=== PATIENT | female | born 1960 | race Caucasian/White ===

== ENCOUNTER 2016-06-20 02:16 | Emergency (ER) | payer MEDICAID, OTHER, SELFPAY ==
[2016-06-20 02:36] VITALS: BP 136/70
[2016-06-20] MEDS ORDERED: Sodium Chloride 0.9% 1,000 ML IV ONE (02:38)
--- NOTE | 2016-06-20 02:39 | EDM.PDOC ---
ED HPI GI/ABDOMINAL - General Chief Complaint: Abdominal Pain Stated Complaint: DIARRHEA NAUSEA COUGH Time Seen by Provider: 06/20/16 02:37 Source of Information: Reports: Patient History Limitations: Reports: No limitations - History of Present Illness INITIAL COMMENTS - FREE TEXT/NARRATIVE: 55-year-old female presents the ED with diffuse abdominal cramping pain and associated diarrhea. She's also vomited twice at home. She states she thinks she got sick from eating bad food at a buffet earlier in the evening at around 7 :00. She started to feel unwell even while fishing upper meal. Started vomiting about 3-1/2-4 hours later with associated diarrhea. Pain is primarily central abdominal cramping in origin. Feels better after diarrhea. She's had 3 large volume diarrheal stools without blood. Associated chills and feeling hot and cold but no defined fever. She reports a constant tickle in her throat and dry cough. She believes she has gallstones but is never been proven. Rates her pain in her abdomen at this time as 2/10 . Feels bloated and distended. Symptom Onset Date: 06/20/16 Timing/Duration: Reports: Hour(s):, Sudden onset Location: other (Epigastric and periumbilical) Quality: Reports: burning, cramping, fullness Severity: moderate Improves with: Reports: defecating Context: Reports: bad/questionable food. Denies: sick contact, out of country travel, recent surgery, recent trauma, lifting, activity/exercise, other Associated Symptoms (-Female): Reports: other (Chronic nonproductive cough.). Denies: chest pain, back pain Treatments [employer]: Reports: Other (see below) (None) - Related Data Allergies/ADRs: Allergies Allergy/AdvReac Type Severity Reaction Status Date / Time No Known Allergies Allergy Verified 04/13/16 04:22 Home Meds: Home Meds Orphenadrine [Norflex] 1 tab PO Q12H #10 tab.er 04/13/16 [Rx] Ondansetron [Zofran ODT] 4 mg PO Q6H #4 tab.dis 06/20/16 [Rx] Past Medical History - Past Health History Medical/Surgical History: Denies Medical/Surgical History Gastrointestinal History: Reports: Hemorrhoids, Helicobacter pylori Other Gastrointestinal History: with [employer] History: Reports: Musculoskeletal History: Reports: Arthritis Other Musculoskeletal History: Back injury 7 years ago - Infectious Disease History Infectious Disease History: Reports: Chicken pox, Measles - Past Surgical History Female Surgical History: Reports: section (x 3) Social & Family History - Family History Family Medical History: Noncontributory - Tobacco Use Smoking Status *Q: Never Smoker Second Hand Smoke Exposure: No - Caffeine Use Caffeine Use: Reports: Coffee - Alcohol Use Days Per Week of Alcohol Use: 3 Number of Drinks Per Day: 1 Total Drinks Per Week: 3 - Recreational Drug Use Recreational Drug Use: No - Living Situation & Occupation Living situation: Reports: single, alone Occupation: employed ([employer]) ED ROS GENERAL - Review of Systems Review Of Systems: See Below Constitutional: Reports: chills, malaise, weakness, fatigue. Denies: fever, weight loss HEENT: Reports: No symptoms Respiratory: Reports: Cough (Cough for a lengthy period of time mostly dry nonproductive worsened yesterday.) Cardiovascular: Reports: Lightheadedness (Little lightheaded when she stands up. ). Denies: Chest pain, Blood pressure problem, Claudication, Dyspnea on exertion, Edema, Orthopnea Endocrine: Reports: no symptoms, polydypsia GI/Abdominal: Reports: Abdominal pain, Diarrhea (See history of present illness) , Nausea, Vomiting. Denies: Hematemesis, Hematochezia : Reports: frequency Musculoskeletal: Reports: back pain (Some problems with low back pain and knee pain.) Neurological: Reports: No Symptoms Psychiatric: Reports: No symptoms Hematologic/Lymphatic: Reports: no symptoms ED EXAM, GI/ABD - Physical Exam Exam: See Below Exam Limited By: No limitations General Appearance: alert, WD/WN, mild distress Eyes: bilateral: normal appearance (No jaundice) Throat/Mouth: Normal inspection, Normal lips, Normal oropharynx, Other Head: atraumatic, normocephalic Neck: normal inspection, supple, non-tender, full range of motion Respiratory/Chest: no respiratory distress, lungs clear, normal breath sounds, no accessory muscle use, chest non-tender Cardiovascular: normal peripheral pulses, regular rate, rhythm, no edema, no murmur GI/Abdominal: hyperactive bowel sounds, tenderness (Periumbilical and right lower quadrant.), Ortiz's sign (Mildly positive Ortiz sign. May be tenderness in the epigastrium from vomiting.), other (Abdominal girth limits palpation of solid organs.). No: guarding, rebound, rigidity Back Exam: normal inspection, full range of motion. No: CVA tenderness (L), CVA tenderness (R) Extremities: normal inspection, normal range of motion, non-tender, no pedal edema, normal capillary refill Psychiatric: normal affect, normal mood Skin Exam: Warm, Dry, Intact, Normal color, No rash Course - Vital Signs Last Recorded V/S: Last Vital Signs Temp 36.2 C 06/20/16 02:31 Pulse 80 06/20/16 02:31 Resp 16 06/20/16 02:31 BP 136/70 06/20/16 02:31 Pulse Ox 93 L 06/20/16 02:31 - Orders/Labs/Meds Labs: Laboratory Tests 06/20/16 06/20/16 Range/Units 02:45 02:45 WBC 5.26 (3.98-10.04) K/mm3 RBC 5.00 (3.98-5.22) M/mm3 Hgb 14.6 (11.2-15.7) gm/L Hct 44.1 (34.1-44.9) % MCV 88.2 (79.4-94.8) fl MCH 29.2 (25.6-32.2) pg MCHC 33.1 (32.2-35.5) g/dl RDW Std Deviation 41.6 (36.4-46.3) fL Plt Count 206 (182-369) K/mm3 MPV 10.0 (9.4-12.3) fl Neutrophils % (Manual) 68 H (40-60) % Band Neutrophils % 0 (0-10) % Lymphocytes % (Manual) 19 L (20-40) % Atypical Lymphs % 0 % Monocytes % (Manual) 6 (2-10) % Eosinophils % (Manual) 5 (0.7-5.8) % Basophils % (Manual) 2 H (0.1-1.2) Platelet Estimate Adequate Plt Morphology Comment Normal RBC Morph Comment Normal Sodium 143 (136-145) mEq/L Potassium 3.6 (3.5-5.1) mEq/L Chloride 108 H (98-107) mEq/L Carbon Dioxide 25 (21-32) mEq/L Anion Gap 13.6 (5-15) BUN 19 H (7-18) mg/dL Creatinine 0.9 (0.55-1.02) mg/dL Est Cr Clr Drug Dosing 62.80 mL/min Estimated GFR (MDRD) > 60 (>60) mL/min BUN/Creatinine Ratio 21.1 H (14-18) Glucose 112 H (74-106) mg/dL Calcium 8.6 (8.5-10.1) mg/dL Total Bilirubin 0.8 (0.2-1.0) mg/dL AST 23 (15-37) U/L ALT 25 (14-59) U/L Alkaline Phosphatase 77 (46-116) U/L C-Reactive Protein 1.2 H* (<1.0) mg/dL Total Protein 7.3 (6.4-8.2) g/dl Albumin 3.4 (3.4-5.0) g/dl Globulin 3.9 gm/dL Albumin/Globulin Ratio 0.9 L (1-2) Amylase 73 (25-115) U/L Meds: Medications Discontinued Medications Generic Name Dose Route Start Last Admin Trade Name Jaceq PRN Reason Stop Dose Admin Dicyclomine HCl 20 mg 06/20/16 04:27 06/20/16 04:33 Bentyl PO 06/20/16 04:28 20 mg ONETIME ONE Administration Hydromorphone HCl 0.5 mg 06/20/16 02:57 06/20/16 03:12 Dilaudid IVPUSH 06/20/16 02:58 0.5 mg ONETIME ONE Administration Sodium Chloride 1,000 mls @ 500 mls/hr 06/20/16 02:38 06/20/16 02:45 Normal Saline IV 06/20/16 04:37 500 mls/hr ONETIME ONE Administration Ondansetron HCl 4 mg 06/20/16 02:57 06/20/16 03:11 Zofran IVPUSH 06/20/16 02:58 4 mg ONETIME ONE Administration - Radiology Interpretation Free Text/Narrative:: 55-year-old female presents the ED do to diffuse abdominal cramping pain and associated nausea vomiting and diarrhea. She states that she has been told she has gallbladder disease and not to eat much in terms of fatty foods. She ate out at [employer] last evening and felt unwell prior to even finishing her meal. About 3-1/2 hours later she started having nausea then vomiting followed by diarrhea suggesting foodborne illness. She has had 3 large volume watery stools and has vomited 3 times well without blood. Associated feeling hot and cold without a defined fever. Has mid abdominal cramping pain. Examination revealed hyperactive bowel sounds and no convincing evidence of peritonitis or gallbladder disease. Plan IV D5 normal saline at open. Zofran 4 mg IV and Dilaudid 0.5 mg IV for pain relief. Routine labs including an amylase to be done. - Re-Assessments/Exams Free Text/Narrative Re-Assessment/Exam: 06/20/16 04:24 chest x-ray was done and was within normal limits. The abdomen shows scattered air throughout the large and small bowel without any obstructive signs or symptoms. Bedside ultrasound done I believe shows a small layering of stones on the posterior fundus. The gallbladder was difficult to visualize due to abdominal size. Gallbladder wall did not appear to be thickened and no pericholecystic fluid was identified. Lab tests also proved to be completely normal with a white count of 5.26 and 60% neutrophils no bands. Hemoglobin of 14.6 platelets 206,000. Chemistry was completely normal. Amylase was 73. Patient will be discharged home on Zofran 4 mg sublingually q. 4-6 hours. For nausea or vomiting relief. Will be given Bentyl 20 mg tablet orally now. Advise clear fluids such as Gatorade Powerade ideally 5 ounces per hour for the next 8-10 hours and then gradually introduced soup broth and then turkey rice turkey noodle soup such. Advised to avoid all dairy products and no apple or grape juice until stools are formed backup. Departure - Departure Time of Disposition: 04:27 Disposition: Home, Self-Care 01 Condition: fair Clinical Impression: Gastroenteritis Prescriptions: Ondansetron [Zofran ODT] 4 mg PO Q6H #4 tab.dis Instructions: Viral Gastroenteritis, Adult, [id number] Referrals: PCP,None [Primary Care Provider] - Forms: ED Department Discharge, Return to Work/School Form Additional Instructions: Evaluation in the emergency tonight in regards to development of acute onset of nausea vomiting and diarrhea. Associated mid abdominal pain. Evaluation by way of lab work revealed no abnormalities. X-ray of your chest was done due to reported increasing cough the last few days but it proved to be normal with no signs of infection or pneumonia. X-rays of the abdomen showed bowel gas throughout both large and small get bowels compatible with diarrhea pattern. It appears that you picked up either a viral gastroenteritis organism or foodborne illness i.e. toxin from food eaten earlier in the evening. The body is getting rid of the virus or toxin by way of vomiting and diarrhea. You're treated with a liter of IV fluids to restore your hydration. Also given Zofran 4 mg IV to stop nausea and vomiting and Dilaudid 0.5 mg for pain relief. Treatment at home is to be clear fluids such as Gatorade or Powerade. Ideally sipping 5 ounces per hour Will rehydrate you to prevent dehydration. Once is as tolerated he may advance diet to things like soda crackers. If tolerated may advance to soup broth or turkey rice turkey noodle et cetera. May then advance to things like toast, poached egg etc. Suggest staying away from all day products and no apple or grape juice until stools are formed back up. Note given to excuse you from the workplace early today and possibly tomorrow depending on how well you do today with the diarrhea. Sometimes the diarrhea may take a day or 2 to settle down. May use Zofran 4 mg under tongue every 6 hours as needed to alleviate nausea or vomiting. 4 tablets were sent home with you through the ED.
[2016-06-20] MEDS ORDERED: HYDROmorphone 0.5 MG/0.5 ML Syringe IVPUSH ONE (02:57)
[2016-06-20] MEDS ORDERED: Ondansetron 4 MG/2 ML SDV IVPUSH ONE (02:57)
[2016-06-20] MEDS ORDERED: Dicyclomine 10 MG Cap PO ONE (04:27)
[2016-06-20] MEDS ORDERED: Ondansetron 4 MG Tab.DIS ONE (04:56)
--- NOTE | 2016-06-20 18:16 | CR ---
Abdomen: Supine view of the abdomen was obtained. Comparison: No previous study. Bowel gas pattern appears normal. No abnormal calcifications or soft tissue abnormality is seen. Bony structures are unremarkable. Impression: 1. No abnormality identified on supine abdominal x-ray. Diagnostic code #1
--- NOTE | 2016-06-20 18:16 | CR ---
Chest: Frontal view of the chest was obtained. Comparison: Previous chest x-ray of 09/28/11. Heart is slightly enlarged. Mild tortuosity of the thoracic aorta is seen. Lungs are clear with no acute infiltrates. Bony structures are grossly intact. Impression: 1. Heart is slightly enlarged. Nothing acute is otherwise seen on frontal chest x-ray. Diagnostic code #2
== END 2016-06-20 05:00 | disposition home or self-care (01) ==
LOC: JD.ED 02:16
DX: K52.9 Noninfective gastroenteritis and colitis, unspecified (principal); M19.90 Unspecified osteoarthritis, unspecified site; Z79.899 Other long term (current) drug therapy
CPT/HCPCS: 36415; 71010; 74000; 80053; 82150; 85025; 86140; 96361; 96374; 96375; 99284; A9270; J1170; J2405; J7040

== ENCOUNTER 2016-11-08 13:35 | Emergency (ER) | payer SELFPAY ==
[2016-11-08 14:02] VITALS: BP 120/55
--- NOTE | 2016-11-08 14:31 | EDM.PDOC ---
ED HPI GENERAL MEDICAL PROBLEM - General Chief Complaint: Back Pain or Injury Stated Complaint: BACK PAIN/SPASMS Time Seen by Provider: 11/08/16 14:16 Source of Information: Reports: Patient History Limitations: Reports: No Limitations - History of Present Illness INITIAL COMMENTS - FREE TEXT/NARRATIVE: Patient is a 55-year-old female who presents to the ED complaining of back spasms. 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 States she was seen approximately 2 weeks ago for similar symptoms and was placed on a muscle relaxer. Bought a new pair of shoes thinking that this would relieve her discomfort. States the last couple of days discomfort has worsened. Pain is located to the left and right buttocks with occasional intermittent shooting pain to her thigh. Pain is improved with moving. Worsened with standing and placed for long duration of time. Denies any saddle anesthesia, incontinence to urine or stool, numbness/ tingling, weakness, or history of back injury/surgery. Patient has no dysuria. As of recent patient is not taking any Tylenol or ibuprofen. Back Pain Score (Numeric/FACES): 1 - Related Data Allergies Allergy/AdvReac Type Severity Reaction Status Date / Time No Known Allergies Allergy Verified 04/13/16 04:22 Home Meds: Home Meds Orphenadrine [Norflex] 100 mg PO BID PRN #20 tab.er 11/08/16 [Rx] Prednisone [IMW: predniSONE] 40 mg PO WITHBREAKFAST #10 tab 11/08/16 [Rx] Past Medical History - Past Health History Medical/Surgical History: Denies Medical/Surgical History Gastrointestinal History: Reports: Cholelithiasis, Hemorrhoids, Helicobacter Pylori Other Gastrointestinal History: with [employer] History: Reports: Musculoskeletal History: Reports: Arthritis Other Musculoskeletal History: Back injury 7 years ago - Infectious Disease History Infectious Disease History: Reports: Chicken Pox, Measles - Past Surgical History Female Surgical History: Reports: Section Social & Family History - Family History Family Medical History: Noncontributory - Tobacco Use Smoking Status *Q: Never Smoker Second Hand Smoke Exposure: No - Caffeine Use Caffeine Use: Reports: Coffee - Alcohol Use Days Per Week of Alcohol Use: 3 Number of Drinks Per Day: 1 Total Drinks Per Week: 3 - Recreational Drug Use Recreational Drug Use: No - Living Situation & Occupation Living situation: Reports: Single, Alone Occupation: Employed ED ROS GENERAL - Review of Systems Review Of Systems: See Below Constitutional: Reports: No Symptoms Respiratory: Reports: No Symptoms Cardiovascular: Reports: Dyspnea on Exertion GI/Abdominal: Reports: No Symptoms : Reports: No Symptoms Musculoskeletal: Reports: Back Pain Neurological: Denies: Numbness, Tingling, Difficulty Walking ED EXAM,LOWER BACK PAIN/INJURY - Physical Exam Exam: See Below Exam Limited By: No Limitations General Appearance: Alert, WD/WN, No Apparent Distress Ears: Hearing Grossly Normal Nose: Normal Inspection Throat/Mouth: Normal Voice, No Airway Compromise Neck: Normal Inspection, Supple Respiratory/Chest: No Respiratory Distress, Lungs Clear, Normal Breath Sounds, No Accessory Muscle Use Cardiovascular: Normal Peripheral Pulses, Regular Rate, Rhythm GI/Abdominal: Normal Bowel Sounds, Soft, Non-Tender, No Organomegaly, No Distention Back Exam: Normal Inspection, Full Range of Motion, Other (pain along the si joint bilaterally. ). No: Paraspinal Tenderness, Vertebral Tenderness Extremities: Normal Inspection, Normal Range of Motion, Non-Tender, No Pedal Edema, Normal Capillary Refill. No: Limited Range of Motion Neurological: Alert, Normal Mood/Affect, Normal Dorsiflexion, CN II-XII Intact, Normal Plantar Flexion, Normal Gait, No Motor/Sensory Deficits, Oriented x 3. No: Straight Leg Raise (L), Straight Leg Raise (R) Psychiatric: Normal Affect, Normal Mood Skin Exam: Warm, Dry, Intact, Normal Color Lymphatic: No Adenopathy Course - Vital Signs Last Recorded V/S: Last Vital Signs Temp 97.8 F 11/08/16 13:59 Pulse 74 11/08/16 13:59 Resp 20 11/08/16 13:59 BP 120/55 L 11/08/16 13:59 Pulse Ox 98 11/08/16 13:59 - Re-Assessments/Exams Free Text/Narrative Re-Assessment/Exam: On examination patient has SI joint dysfunction. Thus will discharge patient home with instructions. Departure - Departure Time of Disposition: 14:28 Disposition: Home, Self-Care 01 Condition: Good Clinical Impression: Bilateral sacroiliitis - Discharge Information Prescriptions: Orphenadrine [Norflex] 100 mg PO BID PRN #20 tab.er PRN Reason: Muscle Spasm Prednisone [IMW: predniSONE] 40 mg PO WITHBREAKFAST #10 tab Instructions: Back Injury Prevention, [id number], Muscle Strain, [id number] , Back Pain, Adult, [id number], Pain Medicine Instructions, [id number], Chronic Back Pain Referrals: PCP,None [Primary Care Provider] - Forms: ED Department Discharge Additional Instructions: Take Norflex and prednisone as prescribed. Utilize ibuprofen and Tylenol in alternating fashion for pain. Apply cold compresses 4 times daily, 20 minutes in duration, for the next 48 hours. Thereafter alternate with heat and ice. Refrain from any activities that cause worsening pain. Follow-up with primary care provider at [facility] in the next week for reevaluation. Return to ED for any new or worsening symptoms.
== END 2016-11-08 15:00 | disposition home or self-care (01) ==
LOC: JD.ED 13:35
DX: M46.1 Sacroiliitis, not elsewhere classified (principal)
CPT/HCPCS: 99283

== ENCOUNTER 2017-05-15 05:39 | Emergency (ER) | payer OTHER, SELFPAY ==
[2017-05-15 05:48] VITALS: BP 138/66
--- NOTE | 2017-05-15 06:14 | EDM.PDOC ---
ED HPI GENERAL MEDICAL PROBLEM - General Chief Complaint: Skin Complaint Stated Complaint: PAIN BRUNING ON THE BUTTOX Time Seen by Provider: 05/15/17 05:56 Source of Information: Reports: Patient History Limitations: Reports: No Limitations - History of Present Illness INITIAL COMMENTS - FREE TEXT/NARRATIVE: This is a 56-year-old female. She noted yesterday morning that when she went to the bathroom and then wiped herself she had some soreness and pain in her buttocks region. It is only gotten more irritated and painful and so she comes to the ER this morning for evaluation. She denies any exposure to any chemicals or soaps or anything she is not sure why she has this rash. She denies any fever or chills no nausea and vomiting no diarrhea. 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 [employer] History: Reports: Musculoskeletal History: Reports: Arthritis Other Musculoskeletal History: Back injury 7 years ago - Infectious Disease History Infectious Disease History: Reports: Chicken Pox, Measles - Past Surgical History Female Surgical History: Reports: Section Social & Family History - Family History Family Medical History: Noncontributory - Tobacco Use Smoking Status *Q: Never Smoker Second Hand Smoke Exposure: No - Caffeine Use Caffeine Use: Reports: Coffee - Alcohol Use Days Per Week of Alcohol Use: 3 Number of Drinks Per Day: 1 Total Drinks Per Week: 3 - Recreational Drug Use Recreational Drug Use: No - Living Situation & Occupation Living situation: Reports: Single, Alone Occupation: Employed ED ROS GENERAL - Review of Systems Review Of Systems: See Below Constitutional: Denies: Fever, Chills HEENT: Reports: No Symptoms Respiratory: Reports: No Symptoms Cardiovascular: Reports: No Symptoms Endocrine: Reports: No Symptoms GI/Abdominal: Reports: No Symptoms : Reports: Other (As per history of present illness) Musculoskeletal: Reports: No Symptoms Skin: Reports: No Symptoms Neurological: Reports: No Symptoms Psychiatric: Reports: No Symptoms Hematologic/Lymphatic: Reports: No Symptoms ED EXAM, SKIN/RASH Exam: See Below Exam Limited By: No Limitations General Appearance: Alert, WD/WN, No Apparent Distress Eye Exam: Bilateral Eye: Normal Inspection Ears: Normal External Exam Nose: Normal Inspection Throat/Mouth: Normal Inspection, Normal Lips, Normal Voice, No Airway Compromise Head: Normocephalic Neck: Supple Respiratory/Chest: No Respiratory Distress Back Exam: Other (On her back at the very top of the buttocks cleavage she has a patch about the size of a palm on the right side of midline that appears to be developing shingles. I do not see any other lesions following the S1 or S2 dermatome on the right side, she has a typical erythematous patch with blistering and different stages of blistering noted) Extremities: Normal Inspection, Normal Range of Motion Neurological: Alert, Oriented Psychiatric: Normal Affect, Normal Mood Skin: Warm, Dry, Zoster-Like Rash Location, Skin: Back (Lower back) Characteristics: Vesicular Associated features: Tenderness Course - Vital Signs Last Recorded V/S: Last Vital Signs Temp 96.4 F 05/15/17 05:45 Pulse 71 05/15/17 05:45 Resp 16 05/15/17 05:45 BP 138/66 05/15/17 05:45 Pulse Ox 98 05/15/17 05:45 Departure - Departure Time of Disposition: 06:12 Disposition: Home, Self-Care 01 Condition: Fair Clinical Impression: Shingles (herpes zoster) polyneuropathy - Discharge Information Prescriptions: Acyclovir 800 mg PO 5XDAY #35 tablet Hydrocodone/Acetaminophen [Hydrocodon-Acetaminophen 5-325] 1 each PO Q6H PRN # 15 tablet PRN Reason: Pain Referrals: Nella Pierce PA-C [[facility]] - Additional Instructions: Give the acyclovir today and started today, you may use the pain medication as needed and it is best to use at night time so you can sleep, be careful about taking the pain medication during the day as it can make you sleepy, use the lidocaine patches to the lesions to help numb the area or use Solarcaine spray to numb the area, recheck with a provider end of this week, expect that you will get some more rash and blistering besides that one patch as the shingles develops, return to the ER if needed
== END 2017-05-15 06:30 | disposition home or self-care (01) ==
LOC: JD.ED 05:39
DX: B02.23 Postherpetic polyneuropathy (principal)
CPT/HCPCS: 99283

== ENCOUNTER 2018-04-09 00:06 | Emergency (ER) | payer SELFPAY ==
[2018-04-09 00:17] VITALS: BP 134/61
[2018-04-09] MEDS ORDERED: Ibuprofen 200 MG Tab PO ONE (00:40)
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
== END 2018-04-09 01:06 | disposition home or self-care (01) ==
LOC: JD.ED 00:06
DX: M70.62 Trochanteric bursitis, left hip (principal)
CPT/HCPCS: 99283; A9270; 99282

== ENCOUNTER 2018-07-06 09:47 | Emergency (ER) | payer OTHER, SELFPAY ==
[2018-07-06 10:06] VITALS: BP 125/78
[2018-07-06] MEDS ORDERED: Ketorolac 30 MG/ML SDV IM ONE (11:09)
[2018-07-06] MEDS ORDERED: Orphenadrine 100 MG Tab.ER ONE (11:14)
--- NOTE | 2018-07-06 11:14 | EDM.PDOC ---
ED HPI GENERAL MEDICAL PROBLEM - General Chief Complaint: Back Pain or Injury Stated Complaint: BACK SPASM Time Seen by Provider: 07/06/18 10:05 Source of Information: Reports: Patient, RN Notes Reviewed History Limitations: Reports: No Limitations - History of Present Illness INITIAL COMMENTS - FREE TEXT/NARRATIVE: Patient is a 57-year-old female who presents to the ED for the evaluation of lower back pain. The patient states that she first hurt her back when she was in her 20s, and she has been having chronic issues since then. She states over the past few days however it is been worse. She notes that she works at [employer] in the [employer] and does have to lift some heavier boxes from time to time and states that she does have some back pain after lifting these heavier boxes. She states that when she awoke this morning there were some "twinges"of pain. She did take a cyclobenzaprine around 2 hours ago. She has been taken some ibuprofen, her last dose was 400 mg yesterday. She states that the pain is a sharp stabbing in nature. She does not have any numbness or tingling into her extremities nor does the pain radiated down her right or left leg. She states the pain is mostly into her left lower back. She states that walking does hurt this as well. She states she does have a primary care provider, however she cannot remember her name at this time. She states this she in the [facility] facility however. 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: Musculoskeletal History: Reports: Arthritis Other Musculoskeletal History: Back injury 7 years ago Endocrine/Metabolic History: Reports: Obesity/BMI 30+ - Infectious Disease History Infectious Disease History: Reports: Chicken Pox, Measles - Past Surgical History HEENT Surgical History: Reports: Oral Surgery (wisdom teeth extraction) Female Surgical History: Reports: Section (x 3), Tubal Ligation Social & Family History - Family History Family Medical History: Noncontributory - Caffeine Use Caffeine Use: Reports: Coffee - Living Situation & Occupation Living situation: Reports: , Alone Occupation: Employed ([employer]) ED ROS GENERAL - Review of Systems Review Of Systems: See Below Constitutional: Reports: No Symptoms HEENT: Reports: No Symptoms Respiratory: Reports: No Symptoms Cardiovascular: Reports: No Symptoms Endocrine: Reports: No Symptoms GI/Abdominal: Reports: No Symptoms : Reports: No Symptoms Musculoskeletal: Reports: Back Pain. Denies: Leg Pain Skin: Reports: No Symptoms Neurological: Denies: Numbness, Tingling Psychiatric: Reports: No Symptoms Hematologic/Lymphatic: Reports: No Symptoms Immunologic: Reports: No Symptoms ED EXAM,LOWER BACK PAIN/INJURY - Physical Exam Exam: See Below Exam Limited By: No Limitations General Appearance: Alert, WD/WN, No Apparent Distress Eye Exam: Bilateral Eye: Normal Inspection Ears: Normal External Exam Nose: Normal Inspection Throat/Mouth: Normal Inspection, Normal Lips, Normal Teeth, Normal Gums, Normal Oropharynx, Normal Voice, No Airway Compromise Head: Atraumatic, Normocephalic Neck: Normal Inspection Respiratory/Chest: No Respiratory Distress, Lungs Clear, Normal Breath Sounds, No Accessory Muscle Use, Chest Non-Tender Cardiovascular: Normal Peripheral Pulses, Regular Rate, Rhythm, No Murmur GI/Abdominal: Normal Bowel Sounds, Soft, Non-Tender Back Exam: Normal Inspection, Full Range of Motion, Other (Point tenderness over her left SI joint, and into the muscle insertion) Extremities: Normal Inspection, Normal Range of Motion, No Pedal Edema Neurological: Alert, Normal Mood/Affect, Normal Dorsiflexion, Normal Plantar Flexion, Normal Gait, Normal Reflexes, Oriented x 3. No: Straight Leg Raise (L) , Straight Leg Raise (R) Psychiatric: Normal Affect, Normal Mood Skin Exam: Warm, Dry, Intact, Normal Color, No Rash Course - Vital Signs Last Recorded V/S: Last Vital Signs Temp 98.5 F 07/06/18 10:02 Pulse 85 07/06/18 10:02 Resp 18 07/06/18 10:02 BP 125/78 07/06/18 10:02 Pulse Ox 100 07/06/18 10:02 - Orders/Labs/Meds Orders: Active Orders 24 hr Category Date Time Status Orphenadrine [Norflex] Med 07/06/18 21:00 Ordered 100 mg PO BEDTIME Medication Orders Orphenadrine Citrate (Norflex) 100 mg PO BEDTIME BENOIT Last Admin: 07/06/18 11:16 Dose: 100 mg Meds: Medications Generic Name Dose Route Start Last Admin Trade Name Freq PRN Reason Stop Dose Admin Orphenadrine Citrate 100 mg 07/06/18 21:00 07/06/18 11:16 Norflex PO 100 mg BEDTIME BENOIT Administration Discontinued Medications Generic Name Dose Route Start Last Admin Trade Name Freq PRN Reason Stop Dose Admin Ketorolac Tromethamine 30 mg 07/06/18 11:09 07/06/18 11:16 Toradol IM 07/06/18 11:10 30 mg ONETIME ONE Administration Orphenadrine Citrate Confirm 07/06/18 11:14 Norflex Administered 07/06/18 11:15 Dose 100 mg .ROUTE .ST-MED ONE - Re-Assessments/Exams Free Text/Narrative Re-Assessment/Exam: 07/06/18 11:38 Patient presents to the ED for the evaluation of lower back pain. This is suspicious for an acute flare of her chronic back issues. I have advised her to observe conservative management of this at this time. I did switch her from cyclobenzaprine to Norflex, so she may be able to work with this. I have also advised her that she not lift any heavy boxes at work and that she suggest a change in her work role. The patient noted she has been having some minor problems with allergies. I did provide her some information on seasonal allergies and have recommended a conservative treatment plan for this as well. Patient is amenable to these plans. Departure - Departure Time of Disposition: 11:11 Disposition: Home, Self-Care 01 Condition: Fair Clinical Impression: Lower back pain Qualifiers: Chronicity: acute Back pain laterality: left Sciatica presence: without sciatica Qualified Code(s): M54.5 - Low back pain - Discharge Information *PRESCRIPTION DRUG MONITORING PROGRAM REVIEWED*: No *COPY OF PRESCRIPTION DRUG MONITORING REPORT IN PATIENT [place]: No Prescriptions: Orphenadrine [Norflex] 100 mg PO BID PRN #20 tab PRN Reason: Spasms Instructions: Back Injury Prevention, [id number], Chronic Back Pain, Easy-to- Read Referrals: PCP,None [Primary Care Provider] - Forms: ED Department Discharge, ED Return to Work/School Form Additional Instructions: You have been evaluated in the ED for your left lower back pain. Please use ice/heat as tolerated to the affected area. You may take tylenol 500 mg or ibuprofen 600mg q6 hrs for pain relief. Please do so until you have a tolerable level of pain with activity. Do not exceed 4000mg tylenol, Do not exceed 3200mg ibuprofen in a 24 hour time period. Please take the Norflex, 1 tab PO twice daily for muscle spasms. This has been electronically sent to the [facility] located in the [facility]. Please return to ED if your symptoms should change or worsen. - My Orders Last 24 Hours: My Active Orders 07/06/18 21:00 Orphenadrine [Norflex] 100 mg PO BEDTIME - Assessment/Plan Last 24 Hours: My Active Orders 07/06/18 21:00 Orphenadrine [Norflex] 100 mg PO BEDTIME
[2018-07-06] MEDS ORDERED: Orphenadrine 100 MG Tab.ER PO SCH (21:00)
== END 2018-07-06 11:35 | disposition home or self-care (01) ==
LOC: JD.ED 09:47
DX: M54.5 Low back pain (principal); E66.9 Obesity, unspecified; Z98.51 Tubal ligation status; Z98.890 Other specified postprocedural states
CPT/HCPCS: 96372; 99283; A9270; J1885

== ENCOUNTER 2018-11-29 13:40 | Emergency (ER) | payer OTHER, SELFPAY ==
[2018-11-29 13:56] VITALS: BP 103/86; PULSE 76
[2018-11-29] MEDS ORDERED: Sodium Chloride 0.9% 10 ML Syringe FLUSH PRN (14:17)
--- NOTE | 2018-11-29 15:07 | EDM.PDOC ---
ED HPI GENERAL MEDICAL PROBLEM - General Chief Complaint: Chest Pain Stated Complaint: PAIN IN SHOULDER BLADE AND CHEST Time Seen by Provider: 11/29/18 13:51 Source of Information: Reports: Patient History Limitations: Reports: No Limitations - History of Present Illness INITIAL COMMENTS - FREE TEXT/NARRATIVE: The patient presents with right shoulder/scapula pain and right chest pain. She said a few weeks ago she hurt her shoulder lifting some things at work. She works at [employer]. She says the chest pain comes with her shoulder pain. She has no shortness of breath. She has no fever, chills, cough, congestion, runny nose, abdominal pain, nausea or vomiting. She has no history of DVT or PE. She has no history of heart problems. Onset: Gradual Duration: Week(s): Location: Reports: Chest, Upper Extremity, Right (shoulder/scapula) Quality: Reports: Sharp Severity: Moderate Improves with: Reports: Immobilization Worsens with: Reports: Movement Context: Reports: Activity (Doing some heavy lifting) Associated Symptoms: Reports: No Other Symptoms Middle Chest Pain Score (Numeric/FACES): 2 - Related Data Allergies Allergy/AdvReac Type Severity Reaction Status Date / Time No Known Allergies Allergy Verified 11/29/18 13:56 Home Meds: Home Meds Naproxen [Naprosyn] 500 mg PO Q12HR PRN #30 tab 11/29/18 [Rx] Past Medical History - Past Health History Medical/Surgical History: Denies Medical/Surgical History HEENT History: Reports: Impaired Vision Gastrointestinal History: Reports: Hemorrhoids Other Gastrointestinal History: with cholecystitis 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: Musculoskeletal History: Reports: Arthritis Other Musculoskeletal History: Back injury 7 years ago Endocrine/Metabolic History: Reports: Obesity/BMI 30+ - Infectious Disease History Infectious Disease History: Reports: Chicken Pox, Measles, Shingles - Past Surgical History HEENT Surgical History: Reports: Oral Surgery Female Surgical History: Reports: Section, Tubal Ligation Social & Family History - Family History Family Medical History: Noncontributory - Tobacco Use Smoking Status *Q: Never Smoker Second Hand Smoke Exposure: No - Caffeine Use Caffeine Use: Reports: None - Recreational Drug Use Recreational Drug Use: No - Living Situation & Occupation Living situation: Reports: , Alone Occupation: Employed ([employer]) ED ROS GENERAL - Review of Systems Review Of Systems: See Below Constitutional: Reports: No Symptoms HEENT: Reports: No Symptoms Respiratory: Reports: No Symptoms Cardiovascular: Reports: Chest Pain Endocrine: Reports: No Symptoms GI/Abdominal: Reports: No Symptoms : Reports: No Symptoms Musculoskeletal: Reports: Shoulder Pain (and right scapula) ED EXAM, GENERAL - Physical Exam Exam: See Below Exam Limited By: No Limitations General Appearance: Alert, No Apparent Distress Ears: Normal External Exam Nose: Normal Inspection Head: Atraumatic, Normocephalic Neck: Normal Inspection Respiratory/Chest: No Respiratory Distress, Lungs Clear, Normal Breath Sounds Cardiovascular: Regular Rate, Rhythm, No Edema, No Murmur GI/Abdominal: Soft, Non-Tender, No Organomegaly, No Mass Extremities: Other (Pain upon palpation to the right scapular region) Neurological: Alert, Oriented, No Motor/Sensory Deficits EKG INTERPRETATION EKG Date: 11/29/18 Time: 14:17 Rhythm: NSR Rate (Beats/Min): 77 [place]: Normal P-Wave: Present QRS: Normal ST-T: Normal QT: Normal Course - Vital Signs Last Recorded V/S: Last Vital Signs Temp 98.1 F 11/29/18 13:51 Pulse 76 11/29/18 13:51 Resp 14 11/29/18 13:51 BP 103/86 11/29/18 13:51 Pulse Ox 99 11/29/18 13:51 - Orders/Labs/Meds Orders: Active Orders 24 hr Category Date Time Status Cardiac Monitoring [RC] . DIRECTED Care 11/29/18 14:17 Active EKG Documentation Completion [RC] STAT Care 11/29/18 14:18 Active Peripheral IV Care [RC] . DIRECTED Care 11/29/18 14:18 Active Sodium Chloride 0.9% [Saline Flush] Med 11/29/18 14:17 Active 10 ml FLUSH ASDIRECTED PRN Peripheral IV Insertion Adult [OM.PC] Stat Oth 11/29/18 14:17 Ordered Medication Orders Sodium Chloride (Saline Flush) 10 ml FLUSH ASDIRECTED PRN PRN Reason: Keep Vein Open Labs: Laboratory Tests 11/29/18 11/29/18 11/29/18 Range/Units 14:10 14:10 14:10 WBC 6.39 (3.98-10.04) K/mm3 RBC 4.74 (3.98-5.22) M/mm3 Hgb 14.0 (11.2-15.7) gm/dl Hct 41.9 (34.1-44.9) % MCV 88.4 (79.4-94.8) fl MCH 29.5 (25.6-32.2) pg MCHC 33.4 (32.2-35.5) g/dl RDW Std Deviation 43.2 (36.4-46.3) fL Plt Count 245 (182-369) K/mm3 MPV 10.2 (9.4-12.3) fl Neut % (Auto) 64.9 (34.0-71.1) % Lymph % (Auto) 23.8 (19.3-51.7) % Luna % (Auto) 6.9 (4.7-12.5) % Eos % (Auto) 3.6 (0.7-5.8) Baso % (Auto) 0.5 (0.1-1.2) % Neut # (Auto) 4.15 (1.56-6.13) K/mm3 Lymph # (Auto) 1.52 (1.18-3.74) K/mm3 Luna # (Auto) 0.44 H (0.24-0.36) K/mm3 Eos # (Auto) 0.23 (0.04-0.36) K/mm3 Baso # (Auto) 0.03 (0.01-0.08) K/mm3 D-Dimer, Quantitative 0.28 (0.19-0.50) mg/L Sodium 145 (136-145) mEq/L Potassium 3.8 (3.5-5.1) mEq/L Chloride 108 H (98-107) mEq/L Carbon Dioxide 28 (21-32) mEq/L Anion Gap 12.8 (5-15) BUN 22 H (7-18) mg/dL Creatinine 0.9 (0.55-1.02) mg/dL Est Cr Clr Drug Dosing 60.56 mL/min Estimated GFR (MDRD) > 60 (>60) mL/min BUN/Creatinine Ratio 24.4 H (14-18) Glucose 167 H (74-106) mg/dL Calcium 9.1 (8.5-10.1) mg/dL Total Bilirubin 0.6 (0.2-1.0) mg/dL AST 22 (15-37) U/L ALT 27 (14-59) U/L Alkaline Phosphatase 66 (46-116) U/L Troponin I < 0.017 (0.00-0.056) ng/mL Total Protein 7.1 (6.4-8.2) g/dl Albumin 3.3 L (3.4-5.0) g/dl Globulin 3.8 gm/dL Albumin/Globulin Ratio 0.9 L (1-2) Meds: Medications Generic Name Dose Route Start Last Admin Trade Name Freq PRN Reason Stop Dose Admin Sodium Chloride 10 ml 11/29/18 14:17 Saline Flush FLUSH ASDIRECTED PRN Keep Vein Open - Re-Assessments/Exams Free Text/Narrative Re-Assessment/Exam: 11/29/18 15:10 I ordered an IV saline lock, EKG, CXR and labs. Her CXR shows a NSR with no acute changes. Her CXR looks good. The x-ray of her shoulder shows nothing acute. Her CBC and CMP look good. Her troponin is negative. 11/29/18 15:34 Her D-dimer is negative. Departure - Departure Time of Disposition: 15:40 Disposition: Home, Self-Care 01 Condition: Good Clinical Impression: Atypical chest pain, Pain in scapula Prescriptions: Naproxen [Naprosyn] 500 mg PO Q12HR PRN #30 tab PRN Reason: Pain Referrals: PCP,None [Primary Care Provider] - Nella Pierce PA-C [Physician Mammography Technologist] - 1 Week Forms: ED Department Discharge, ED Return to Work/School Form Additional Instructions: Take the naprosyn 2 times per day as needed for pain. Ice the areas that hurt. Please return if you are worse. - My Orders Last 24 Hours: My Active Orders 11/29/18 14:17 Cardiac Monitoring [RC] . DIRECTED Sodium Chloride 0.9% [Saline Flush] 10 ml FLUSH ASDIRECTED PRN Peripheral IV Insertion Adult [OM.PC] Stat 11/29/18 14:18 EKG Documentation Completion [RC] STAT Peripheral IV Care [RC] . DIRECTED - Assessment/Plan Last 24 Hours: My Active Orders 11/29/18 14:17 Cardiac Monitoring [RC] . DIRECTED Sodium Chloride 0.9% [Saline Flush] 10 ml FLUSH ASDIRECTED PRN Peripheral IV Insertion Adult [OM.PC] Stat 11/29/18 14:18 EKG Documentation Completion [RC] STAT Peripheral IV Care [RC] . DIRECTED
--- NOTE | 2018-11-29 15:19 | CR ---
Chest: Frontal view of the chest was obtained. Comparison: Prior chest x-ray of 04/20/18. Heart is enlarged. Tortuous thoracic aorta is seen. Lungs are clear with no acute parenchymal change. Bony structures are grossly intact. Impression: 1. Cardiomegaly with no acute intrathoracic process being seen. Diagnostic code #2
--- NOTE | 2018-11-29 15:19 | CR ---
Right shoulder: Three views of the right shoulder were obtained. Comparison: No prior right shoulder exam. Slight inferior projection off the acromion process is seen. Acromioclavicular joint shows mild narrowing. Glenohumeral joint is within normal limits. No fracture, dislocation or other bony abnormality is identified. Impression: 1. Slight inferior hook off the acromion process. Mild narrowing of the acromioclavicular joint. 2. Right shoulder study is otherwise unremarkable. Diagnostic code #2
== END 2018-11-29 15:56 | disposition home or self-care (01) ==
LOC: JD.ED 13:40
DX: R07.89 Other chest pain (principal); M25.511 Pain in right shoulder; E66.9 Obesity, unspecified; Z68.33 Body mass index [BMI] 33.0-33.9, adult; Z98.51 Tubal ligation status
CPT/HCPCS: 36415; 71045; 71045-26; 73030-26-RT; 73030-RT; 80053; 84484; 85025; 85379; 93005; 93010; 99284; 99285-25

== ENCOUNTER 2019-02-14 07:53 | Emergency (ER) | payer SELFPAY ==
[2019-02-14 08:14] VITALS: BP 126/66; PULSE 75
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
--- NOTE | 2019-02-14 09:58 | CR ---
Left foot: Four views of left foot were obtained. Comparison: No previous foot exam. Spur is noted off the plantar margin of the calcaneus. Spur is also noted at the attachment of the Achilles tendon to the calcaneus. Mild joint space narrowing is noted within the first MTP joint. No acute fracture or other abnormality is seen. Impression: 1. Calcaneal spurs. 2. Slight joint space narrowing within the first MTP joint. 3. No additional abnormality is seen on left foot exam. Diagnostic code #2 This report was dictated in [place] Standard Time
== END 2019-02-14 10:58 | disposition home or self-care (01) ==
LOC: JD.ED 07:53
DX: M79.672 Pain in left foot (principal); E66.9 Obesity, unspecified; Z68.33 Body mass index [BMI] 33.0-33.9, adult
CPT/HCPCS: 73630-26-LT; 73630-LT; 99282; 99283-25

== ENCOUNTER 2019-06-23 06:11 | Emergency (ER) | payer OTHER, SELFPAY ==
--- NOTE | 2019-06-23 06:21 | EDM.PDOC ---
ED HPI GENERAL MEDICAL PROBLEM - General Stated Complaint: SORE THROAT Time Seen by Provider: 06/23/19 06:15 Source of Information: Reports: Patient History Limitations: Reports: No Limitations - History of Present Illness INITIAL COMMENTS - FREE TEXT/NARRATIVE: TRIAGE NOTE -- patient c/o sore throat since yesterday. denies cough or fever. As above. 24 hours or so up with scratchy throat. 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 No fever. No cough. Has not felt unwell except for the mild sore throat. No readily identified risk factors. Only medication is ibuprofen and she has taken some infrequently. Discomfort in her throat is more or less constant without any exacerbating factors. - Related Data Allergies Allergy/AdvReac Type Severity Reaction Status Date / Time No Known Allergies Allergy Verified 06/23/19 06:22 Home Meds: Home Meds . 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: Musculoskeletal History: Reports: Arthritis Other Musculoskeletal History: Back injury 7 years ago Endocrine/Metabolic History: Reports: Obesity/BMI 30+ - Infectious Disease History Infectious Disease History: Reports: Chicken Pox, Measles, Shingles - Past Surgical History HEENT Surgical History: Reports: Oral Surgery Female Surgical History: Reports: Section, Tubal Ligation Social & Family History - Family History Family Medical History: Noncontributory - Tobacco Use Smoking Status *Q: Never Smoker - Caffeine Use Caffeine Use: Reports: Other Other Caffeine Use: was not able to address prior to discharge - Living Situation & Occupation Living situation: Reports: , Alone Occupation: Employed ([employer]) ED ROS ENT - Review of Systems Review Of Systems: Comprehensive ROS is negative, except as noted in HPI. ED EXAM, ENT - Physical Exam Exam: See Below Exam Limited By: No Limitations General Appearance: Alert, WD/WN, No Apparent Distress Eye Exam: Bilateral Eye: EOMI, PERRL Ears: Normal External Exam Nose: Normal Inspection Mouth/Throat: Normal Oropharynx (Except for mild erythema of posterior pharynx, no exudate, no asymmetry) Head: Atraumatic, Normocephalic Neck: Normal Inspection, Supple Respiratory/Chest: No Respiratory Distress, Lungs Clear, Normal Breath Sounds, No Accessory Muscle Use Cardiovascular: Regular Rate, Rhythm GI/Abdominal: Soft, Non-Tender Back: Normal Inspection Extremities: Normal Inspection, Non-Tender Neurological: Alert, Oriented, Normal Cognition, Normal Gait, No Motor/Sensory Deficits Psychiatric: Normal Affect Skin: Warm, Dry Course - Vital Signs Last Recorded V/S: Last Vital Signs Temp 36.1 C 06/23/19 06:18 Pulse 75 06/23/19 06:18 Resp 16 06/23/19 06:18 BP 136/91 H 06/23/19 06:18 Pulse Ox 98 06/23/19 06:18 - Orders/Labs/Meds Orders: Active Orders 24 hr Category Date Time Status CULTURE STREP A CONFIRMATION [] Stat Lab 06/23/19 06:18 Results Rapid Strep w/culture conf [STREP SCRN A RAPID W CULT Lab 06/23/19 06:18 Received CONF] [] Stat - Re-Assessments/Exams Free Text/Narrative Re-Assessment/Exam: 06/23/19 06:52 The basis of presentation and exam the patient definitely has a quite mild condition strep test is negative. Discussed with patient. Salt water gargles may actually help. Return for beth symptoms of serious illness including fever prostration etc. Departure - Departure Time of Disposition: 06:53 Disposition: Home, Self-Care 01 Condition: Good Clinical Impression: Viral pharyngitis - Discharge Information Instructions: Viral Respiratory Infection, [id number] Referrals: PCP,None [Primary Care Provider] - Sepsis Event Note - Focused Exam Vital Signs: Vital Signs Temp Pulse Resp BP Pulse Ox 06/23/19 06:18 36.1 C 75 16 136/91 H 98 Date Exam was Performed: 06/23/19 Time Exam was Performed: 06:52 - My Orders Last 24 Hours: My Active Orders 06/23/19 06:18 CULTURE STREP A CONFIRMATION [RM] Stat Rapid Strep w/culture conf [STREP SCRN A RAPID W CULT CONF] [] Stat - Assessment/Plan Last 24 Hours: My Active Orders 06/23/19 06:18 CULTURE STREP A CONFIRMATION [RM] Stat Rapid Strep w/culture conf [STREP SCRN A RAPID W CULT CONF] [] Stat
[2019-06-23 07:06] VITALS: BP 136/91; PULSE 75
== END 2019-06-23 06:57 | disposition home or self-care (01) ==
LOC: JD.ED 06:11
DX: J02.8 Acute pharyngitis due to other specified organisms (principal); E66.9 Obesity, unspecified; Z68.36 Body mass index [BMI] 36.0-36.9, adult
CPT/HCPCS: 87081; 87430; 99282; 99283

== ENCOUNTER 2019-08-18 10:17 | Emergency (ER) | payer OTHER, SELFPAY ==
[2019-08-18] MEDS ORDERED: Orphenadrine 100 MG Tab.ER PO ONE (11:31)
[2019-08-18] MEDS ORDERED: Ketorolac 60 MG/2 ML SDV IM ONE (11:31)
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
[2019-08-18 14:51] VITALS: BP 141/75; PULSE 64
== END 2019-08-18 13:12 | disposition home or self-care (01) ==
LOC: JD.ED 10:17
DX: M54.42 Lumbago with sciatica, left side (principal); M62.831 Muscle spasm of calf; E66.9 Obesity, unspecified; Z68.33 Body mass index [BMI] 33.0-33.9, adult; Z79.899 Other long term (current) drug therapy
CPT/HCPCS: 96372; 99283; A9270; J1885

== ENCOUNTER 2019-10-18 01:36 | Emergency (ER) | payer OTHER ==
--- NOTE | 2019-10-18 02:04 | EDM.PDOC ---
ED HPI GENERAL MEDICAL PROBLEM - General Chief Complaint: Respiratory Problem Stated Complaint: sob sore throat chest pressure cough 5 days Time Seen by Provider: 10/18/19 01:54 - History of Present Illness INITIAL COMMENTS - FREE TEXT/NARRATIVE: 58-year-old female presents the emergency room with cough congestion sore throat and possible fever. She has had a cough for 5 days this is nonproductive however it is uncomfortable. She has some nasal congestion and a sore throat. 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 She has decreased appetite but denies any loss of smell or taste. However, she has not eaten in several days. She has not had any abdominal pain nausea vomiting or diarrhea. She denies any other complaints at this time. 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: Musculoskeletal History: Reports: Arthritis Other Musculoskeletal History: Back injury 7 years ago Endocrine/Metabolic History: Reports: Obesity/BMI 30+ - Infectious Disease History Infectious Disease History: Reports: Chicken Pox, Measles, Mumps - Past Surgical History HEENT Surgical History: Reports: Oral Surgery Female Surgical History: Reports: Section, Tubal Ligation Social & Family History - Family History Family Medical History: Noncontributory - Caffeine Use Caffeine Use: Reports: None Other Caffeine Use: was not able to address prior to discharge - Living Situation & Occupation Living situation: Reports: , Alone Occupation: Employed ([employer]) ED ROS GENERAL - Review of Systems Review Of Systems: See Below Constitutional: Reports: No Symptoms HEENT: Reports: Rhinitis, Throat Pain. Denies: No Symptoms Respiratory: Reports: Cough. Denies: No Symptoms, Shortness of Breath, Wheezing, Pleuritic Chest Pain, Sputum Cardiovascular: Reports: No Symptoms Endocrine: Reports: No Symptoms GI/Abdominal: Reports: No Symptoms : Reports: No Symptoms Musculoskeletal: Reports: No Symptoms Skin: Reports: No Symptoms Neurological: Reports: No Symptoms Psychiatric: Reports: No Symptoms ED EXAM, GENERAL - Physical Exam Exam: See Below Exam Limited By: No Limitations General Appearance: Alert, No Apparent Distress, Other (Afebrile no acute distress O2 saturation 90 to 95%.) Eye Exam: Bilateral Eye: Normal Inspection Ears: Normal External Exam, Normal Canal, Hearing Grossly Normal, Normal TMs Nose: Clear Rhinorrhea Throat/Mouth: Normal Inspection, Normal Lips, Normal Teeth, Normal Gums, Normal Oropharynx, Normal Voice, No Airway Compromise Head: Atraumatic, Normocephalic Neck: Normal Inspection, Supple, Non-Tender, Full Range of Motion. No: Lymphadenopathy (L), Lymphadenopathy (R) Respiratory/Chest: No Respiratory Distress, Lungs Clear, Normal Breath Sounds Cardiovascular: Regular Rate, Rhythm, No Edema, No Murmur GI/Abdominal: Normal Bowel Sounds, Soft, Non-Tender Back Exam: Normal Inspection. No: CVA Tenderness (L), CVA Tenderness (R) Extremities: Normal Inspection, No Pedal Edema Neurological: Alert, Oriented, Normal Cognition Course - Vital Signs Last Recorded V/S: Last Vital Signs Temp 36.9 C 10/18/19 01:53 Pulse 76 10/18/19 01:53 Resp 17 10/18/19 01:53 BP 136/75 10/18/19 01:53 Pulse Ox 91 L 10/18/19 01:53 - Orders/Labs/Meds Orders: Active Orders 24 hr Category Date Time Status Chest 1V Frontal [CR] Stat Exams 10/18/19 02:19 Taken CORONAVIRUS COVID-19 PCR PHL Stat Lab 10/18/19 02:42 Received CULTURE STREP A CONFIRMATION [RM] Stat Lab 10/18/19 02:35 Results STREP SCRN A RAPID W CULT CONF [RM] Stat Lab 10/18/19 02:35 Results Labs: Laboratory Tests 10/18/19 10/18/19 10/18/19 Range/Units 02:35 02:35 02:35 WBC 6.37 (3.98-10.04) K/mm3 RBC 4.81 (3.98-5.22) M/mm3 Hgb 14.1 (11.2-15.7) gm/dl Hct 42.8 (34.1-44.9) % MCV 89.0 (79.4-94.8) fl MCH 29.3 (25.6-32.2) pg MCHC 32.9 (32.2-35.5) g/dl RDW Std Deviation 44.0 (36.4-46.3) fL Plt Count 248 (182-369) K/mm3 MPV 9.7 (9.4-12.3) fl Neutrophils % (Manual) 67 H (40-60) % Band Neutrophils % 0 (0-10) % Lymphocytes % (Manual) 22 (20-40) % Atypical Lymphs % 0 % Monocytes % (Manual) 5 (2-10) % Eosinophils % (Manual) 4 (0.7-5.8) % Basophils % (Manual) 2 H (0.1-1.2) Platelet Estimate Adequate Plt Morphology Comment Normal Hypochromasia 1+ slight RBC Morph Comment Abn Sodium 141 (136-145) mEq/L Potassium 3.5 (3.5-5.1) mEq/L Chloride 105 (98-107) mEq/L Carbon Dioxide 28 (21-32) mEq/L Anion Gap 11.5 (5-15) BUN 17 (7-18) mg/dL Creatinine 0.8 (0.55-1.02) mg/dL Est Cr Clr Drug Dosing 68.13 mL/min Estimated GFR (MDRD) > 60 (>60) mL/min BUN/Creatinine Ratio 21.3 H (14-18) Glucose 85 (74-106) mg/dL Calcium 8.4 L (8.5-10.1) mg/dL Ferritin 181 (8-252) ng/ml Total Bilirubin 0.7 (0.2-1.0) mg/dL AST 20 (15-37) U/L ALT 24 (14-59) U/L Alkaline Phosphatase 67 (46-116) U/L C-Reactive Protein 1.1 H* (<1.0) mg/dL Total Protein 7.2 (6.4-8.2) g/dl Albumin 3.2 L (3.4-5.0) g/dl Globulin 4.0 gm/dL Albumin/Globulin Ratio 0.8 L (1-2) - Re-Assessments/Exams Free Text/Narrative Re-Assessment/Exam: 10/18/19 04:19 Laboratory evaluations for the most part unrevealing white count is not elevated she does not have a lymphopenia. C-reactive protein is 1.1 ferritin is normal. COVID pending rapid strep negative. I discussed the findings with the patient and her biggest concern is the sore throat. I have recommended laec-guh-kozafyn throat lozenges or sugar-free hard candy. She will give this a try. Discussed social isolation. Departure - Departure Time of Disposition: 04:20 Disposition: Home, Self-Care 01 Clinical Impression: Acute pharyngitis, Viral upper respiratory tract infection with cough - Discharge Information Forms: ED Department Discharge Additional Instructions: Return to the emergency room with any questions problems or worsening symptoms. Stay home until you have felt normal for at least 72 hours without taking any medication. We checked you for COVID-19 unfortunately the results of this will not be back for a couple of days. Try vlnc-[id number] throat lozenges for your sore throat or sugar-free hard candies. Tylenol as needed for aches and pains and discomfort as well as fever Sepsis Event Note (ED) - Focused Exam Vital Signs: Vital Signs Temp Pulse Resp BP Pulse Ox 10/18/19 01:53 36.9 C 76 17 136/75 91 L - My Orders Last 24 Hours: My Active Orders 10/18/19 02:19 Chest 1V Frontal [CR] Stat 10/18/19 02:35 CULTURE STREP A CONFIRMATION [RM] Stat STREP SCRN A RAPID W CULT CONF [RM] Stat 10/18/19 02:42 CORONAVIRUS COVID-19 PCR PHL Stat - Assessment/Plan Last 24 Hours: My Active Orders 10/18/19 02:19 Chest 1V Frontal [CR] Stat 10/18/19 02:35 CULTURE STREP A CONFIRMATION [RM] Stat STREP SCRN A RAPID W CULT CONF [RM] Stat 10/18/19 02:42 CORONAVIRUS COVID-19 PCR PHL Stat
[2019-10-18 04:42] VITALS: BP 120/62; PULSE 74
--- NOTE | 2019-10-18 09:52 | CR ---
Chest: Portable view of the chest was obtained. Comparison: Prior chest x-ray of 11/29/18. Heart size and mediastinum are within normal limits for portable technique. Lungs are clear with no acute parenchymal change. Bony structures are grossly intact. Impression: 1. Nothing acute is appreciated on portable chest x-ray. Diagnostic code #1 This report was dictated in MDT
== END 2019-10-18 04:30 | disposition home or self-care (01) ==
LOC: JD.ED 01:36
DX: J02.9 Acute pharyngitis, unspecified (principal); E66.9 Obesity, unspecified; Z68.33 Body mass index [BMI] 33.0-33.9, adult; Z79.899 Other long term (current) drug therapy; Z20.828 Contact with and (suspected) exposure to other viral communicable diseases
CPT/HCPCS: 36415; 71045; 71045-26; 80053; 82728; 85007; 85027; 86140; 87081; 87430; 99282; 99283-25; U0002

== ENCOUNTER 2019-11-02 15:57 | Emergency (ER) | payer OTHER ==
[2019-11-02 16:29] VITALS: BP 126/65; PULSE 75
[2019-11-02] MEDS ORDERED: Sodium Chloride 0.9% 10 ML Syringe FLUSH PRN (16:33)
[2019-11-02] MEDS ORDERED: Sodium Chloride 0.9% 1,000 ML IV SCH (16:45)
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
--- NOTE | 2019-11-02 17:08 | CR ---
Chest: Frontal view of the chest was obtained. Lainey: Prior chest x-ray of 10/18/19. Heart size and mediastinum are stable in appearance from prior chest x-ray. Lungs show no acute parenchymal change. Bony structures are grossly intact. Impression: 1. Nothing acute is seen on frontal chest x-ray. Diagnostic code #1 This report was dictated in MDT
== END 2019-11-02 19:40 | disposition home or self-care (01) ==
LOC: JD.ED 15:57
DX: J01.90 Acute sinusitis, unspecified (principal); Z20.828 Contact with and (suspected) exposure to other viral communicable diseases; E66.9 Obesity, unspecified; Z68.38 Body mass index [BMI] 38.0-38.9, adult
CPT/HCPCS: 36415; 71045; 80053; 85025; 86140; 86308; 87635; 99283; J7030; U0002

== ENCOUNTER 2020-05-22 18:30 | Emergency (ER) | payer OTHER, SELFPAY ==
[2020-05-22 18:52] VITALS: BP 151/87; PULSE 73
[2020-05-22] MEDS ORDERED: Sodium Chloride 0.9% 10 ML Syringe FLUSH PRN (19:05)
[2020-05-22] MEDS ORDERED: Ondansetron 4 MG/2 ML SDV IVPUSH ONE (19:06)
--- NOTE | 2020-05-22 19:28 | EDM.PDOC ---
<Hoda Connors - Last Filed: 05/22/20 20:49> ED HPI GENERAL MEDICAL PROBLEM - General Chief Complaint: Abdominal Pain Stated Complaint: ABDOMINAL PAIN/GOES INTO BACK Time Seen by Provider: 05/22/20 18:38 Source of Information: Reports: Patient, RN Notes Reviewed History Limitations: Reports: No Limitations - History of Present Illness INITIAL COMMENTS - FREE TEXT/NARRATIVE: Pt is a 59 year old female presenting to the ER with c/o a 2 days history of middle abdominal pain. She describes it as a sharp, stabbing pain that radiates into her back. She reports feeling mildly nauseous but has had no vomiting or diarrhea. Pain seems to worsen with eating. She has been having regular bowel movements which she describes as a normal consistency with occasional soft stools. She was able to eat lunch today without difficulty; however, she states that she has had a decreased appetite. Denies fever, but states that she was chilled today. She does still have her gallbladder and appendix. Middle Anterior Abdomen Pain Score (Numeric/FACES): 7 - Related Data Allergies Allergy/AdvReac Type Severity Reaction Status Date / Time No Known Allergies Allergy Verified 10/18/19 01:50 Home Meds: Home Meds Orphenadrine [Norflex] 100 mg PO BID PRN #20 tab 08/18/19 [Rx] Naproxen 500 mg PO ASDIRECTED PRN 10/18/19 [History] Amoxicillin/Clavulanate K [Augmentin 875-125 MG] 1 tab PO Q12H 7 Days #14 tablet 11/02/19 [Rx] Benzonatate [Tessalon Perle] 100 mg PO Q8H PRN #30 capsule 11/02/19 [Rx] Dicyclomine [Bentyl] 20 mg PO TID #9 tab 05/22/20 [Rx] Past Medical History - Past Health History Medical/Surgical History: Denies Medical/Surgical History HEENT History: Reports: Impaired Vision Gastrointestinal History: Reports: Hemorrhoids Other Gastrointestinal History: with cholecystitis [employer] History: Reports: Musculoskeletal History: Reports: Arthritis Other Musculoskeletal History: Back injury 7 years ago Endocrine/Metabolic History: Reports: Obesity/BMI 30+ - Infectious Disease History Infectious Disease History: Reports: Chicken Pox, Measles, Mumps - Past Surgical History HEENT Surgical History: Reports: Oral Surgery Female Surgical History: Reports: Section, Tubal Ligation Other Female Surgeries/Procedures: x 3 Social & Family History - Family History Family Medical History: No Pertinent Family History - Tobacco Use Tobacco Use Status *Q: Never Tobacco User Second Hand Smoke Exposure: No - Caffeine Use Caffeine Use: Reports: None Other Caffeine Use: was not able to address prior to discharge - Recreational Drug Use Recreational Drug Use: No - Living Situation & Occupation Living situation: Reports: , Alone Occupation: Employed ([employer]) ED ROS GENERAL - Review of Systems Review Of Systems: See Below Constitutional: Reports: Chills, Decreased Appetite. Denies: Fever HEENT: Reports: No Symptoms Respiratory: Reports: No Symptoms Cardiovascular: Reports: No Symptoms Endocrine: Reports: No Symptoms GI/Abdominal: Reports: Abdominal Pain, Decreased Appetite, Nausea. Denies: Constipation, Diarrhea, Vomiting : Reports: No Symptoms Musculoskeletal: Reports: No Symptoms Skin: Reports: No Symptoms Neurological: Reports: No Symptoms Psychiatric: Reports: No Symptoms Hematologic/Lymphatic: Reports: No Symptoms Immunologic: Reports: No Symptoms ED EXAM, GI/ABD - Physical Exam Exam: See Below General Appearance: Alert, WD/WN, No Apparent Distress Respiratory/Chest: No Respiratory Distress, Lungs Clear, Normal Breath Sounds, No Accessory Muscle Use, Chest Non-Tender Cardiovascular: Normal Peripheral Pulses, Regular Rate, Rhythm, No Edema, No Gallop, No JVD, No Murmur, No Rub GI/Abdominal Exam: Normal Bowel Sounds, Soft, No Organomegaly, No Distention, No Abnormal Bruit, No Mass, Pelvis Stable, Tender (RLQ, periumbilical). No: Guarding, Rigid, Rebound Neurological: Alert, Oriented, CN II-XII Intact, Normal Cognition, Normal Gait, Normal Reflexes, No Motor/Sensory Deficits Psychiatric: Normal Affect, Normal Mood Skin Exam: Warm, Dry, Intact, Normal Color, No Rash Lymphatic: No Adenopathy Course - Re-Assessments/Exams Free Text/Narrative Re-Assessment/Exam: Patient is a 59 year old female presenting to the ER with c/o a 2 day history of mid-abdominal pain. She has had mild nausea, but no vomiting. Denies fever, but felt chilled. On exam, she has tenderness to the RLQ and periumbilical area. She denies the need for pain medication but would like something for nausea. I have ordered CBC, CMP, CRP, lipase, urinalysis, and CT scan of the abdomen pelvis with contrast. I will give Zofran 4mg IV for nausea. 05/22/20 20:49 Hematology is grossly unremarkable. Patient has not voided thus far. She is currently over at CT. Case discussed with DELORES Sams. She will assume care and disposition of the patient due to end of shift. Departure - Departure Disposition: Home, Self-Care 01 Clinical Impression: Constipation Qualifiers: Constipation type: other constipation type Qualified Code(s): K59.09 - Other constipation - Discharge Information Prescriptions: Dicyclomine [Bentyl] 20 mg PO TID #9 tab Instructions: Constipation, Adult, [id number] Referrals: PCP,None [Primary Care Provider] - Forms: ED Department Discharge, ED Return to Work/School Form Additional Instructions: You were seen in this ER for your abdominal pain. Laboratory evaluation and your CT demonstrated no acute abnormalities that would be the cause of your pain however you are fairly constipated on your CT. The oral contrast you received in the ER, will provide a laxative effect and you have been given a bottle of magnesium citrate for further management. You will need to take half a bottle, and then repeat with the last half bottle if you do not have a large bowel movement within 2 to 3 hours. You do not have to start this tonight however and can try this in the morning. You may take some ibuprofen or Tylenol for abdominal discomfort. You were given a prescription for a medicine called dicyclomine or Bentyl for abdomen cramping, you may take 1 tablet up to 3 times a day as needed for further abdomen cramping. Please increase your oral fluid hydration as this will also help keep your bowels regular. Please return to the ER at any time if symptoms change or worsen. Sepsis Event Note (ED) - Evaluation Sepsis Screening Result: No Definite Risk <Shayy Maldonado V - Last Filed: 05/22/20 21:46> Course - Vital Signs Last Recorded V/S: Last Vital Signs Temp 97.2 F 05/22/20 18:50 Pulse 73 05/22/20 18:50 Resp 20 05/22/20 18:50 BP 151/87 H 05/22/20 18:50 Pulse Ox 95 05/22/20 18:50 - Orders/Labs/Meds Orders: Active Orders 24 hr Category Date Time Status Peripheral IV Care [RC] . DIRECTED Care 05/22/20 19:05 Active Abdomen Pelvis w Cont [CT] Stat Exams 05/22/20 19:05 Taken Sodium Chloride 0.9% [Saline Flush] Med 05/22/20 20:30 Active 10 ml FLUSH ASDIRECTED Sodium Chloride 0.9% [Saline Flush] Med 05/22/20 19:05 Active 10 ml FLUSH ASDIRECTED PRN Peripheral IV Insertion Adult [OM.PC] Stat Oth 05/22/20 19:05 Ordered Medication Orders Sodium Chloride (Sodium Chloride 0.9% 10 Ml Syringe) 10 ml FLUSH ASDIRECTED PRN PRN Reason: Keep Vein Open Last Admin: 05/22/20 19:27 Dose: 10 ml Documented by: ROSE Sodium Chloride (Sodium Chloride 0.9% 10 Ml Syringe) 10 ml FLUSH ASDIRECTED BENOIT Last Admin: 05/22/20 20:46 Dose: 10 ml Documented by: ALMA DELIA Labs: Laboratory Tests 05/22/20 05/22/20 05/22/20 Range/Units 19:30 19:30 20:57 WBC 7.48 (3.98-10.04) K/mm3 RBC 4.70 (3.98-5.22) M/mm3 Hgb 13.7 (11.2-15.7) gm/dl Hct 41.6 (34.1-44.9) % MCV 88.5 (79.4-94.8) fl MCH 29.1 (25.6-32.2) pg MCHC 32.9 (32.2-35.5) g/dl RDW Std Deviation 43.9 (36.4-46.3) fL Plt Count 264 (182-369) K/mm3 MPV 9.8 (9.4-12.3) fl Neut % (Auto) 63.9 (34.0-71.1) % Lymph % (Auto) 24.6 (19.3-51.7) % Wolfe % (Auto) 7.2 (4.7-12.5) % Eos % (Auto) 3.5 (0.7-5.8) Baso % (Auto) 0.7 (0.1-1.2) % Neut # (Auto) 4.78 (1.56-6.13) K/mm3 Lymph # (Auto) 1.84 (1.18-3.74) K/mm3 Wolfe # (Auto) 0.54 H (0.24-0.36) K/mm3 Eos # (Auto) 0.26 (0.04-0.36) K/mm3 Baso # (Auto) 0.05 (0.01-0.08) K/mm3 Sodium 142 (136-145) mEq/L Potassium 3.6 (3.5-5.1) mEq/L Chloride 106 (98-107) mEq/L Carbon Dioxide 26 (21-32) mEq/L Anion Gap 13.6 (5-15) BUN 16 (7-18) mg/dL Creatinine 0.8 (0.55-1.02) mg/dL Est Cr Clr Drug Dosing 67.29 mL/min Estimated GFR (MDRD) > 60 (>60) mL/min BUN/Creatinine Ratio 20.0 H (14-18) Glucose 118 H (74-106) mg/dL Calcium 8.9 (8.5-10.1) mg/dL Total Bilirubin 0.5 (0.2-1.0) mg/dL AST 20 (15-37) U/L ALT 27 (14-59) U/L Alkaline Phosphatase 68 (46-116) U/L C-Reactive Protein 1.4 H* (<1.0) mg/dL Total Protein 7.4 (6.4-8.2) g/dl Albumin 3.4 (3.4-5.0) g/dl Globulin 4.0 gm/dL Albumin/Globulin Ratio 0.9 L (1-2) Lipase 117 (73-393) U/L Urine Color Yellow (Yellow) Urine Appearance Clear (Clear) Urine pH 7.0 (5.0-8.0) Ur Specific [place] 1.015 (1.005-1.030) Urine Protein Negative (Negative) Urine Glucose (UA) Negative (Negative) Urine Ketones Negative (Negative) Urine Occult Blood Negative (Negative) Urine Nitrite Negative (Negative) Urine Bilirubin Negative (Negative) Urine Urobilinogen 0.2 (0.2-1.0) Ur Leukocyte Esterase Negative (Negative) Urine RBC 0-5 (0-5) /hpf Urine WBC 0-5 (0-5) /hpf Ur Squamous Epith Cells 0-5 (0-5) /hpf Urine Bacteria Few (FEW) /hpf Urine Mucus Not seen (FEW) /hpf Meds: Medications Generic Name Dose Route Start Last Admin Trade Name [place] PRN Reason Stop Dose Admin Sodium Chloride 10 ml 05/22/20 19:05 05/22/20 19:27 Sodium Chloride 0.9% 10 Ml Syringe FLUSH 10 ml ASDIRECTED PRN Administration Keep Vein Open Sodium Chloride 10 ml 05/22/20 20:30 05/22/20 20:46 Sodium Chloride 0.9% 10 Ml Syringe FLUSH 10 ml ASDIRECTED BENOIT Administration Discontinued Medications Generic Name Dose Route Start Last Admin Trade Name Freq PRN Reason Stop Dose Admin Diatrizoate Meglum/Diatrizoate Sod 120 ml 05/22/20 20:22 05/22/20 20:46 Diatrizoate Meglumine/Diatrizoate Sodium 37% 120 Ml Bottle PO 05/22/20 20:23 120 ml ONETIME ONE Administration Dicyclomine HCl 20 mg 05/22/20 21:45 Dicyclomine 10 Mg Cap PO 05/22/20 21:46 ONETIME ONE Iopamidol 100 ml 05/22/20 20:22 05/22/20 20:46 Iopamidol 612 Mg/Ml 100 Ml Bottle IVPUSH 05/22/20 20:23 100 ml ONETIME ONE Administration Magnesium Citrate 296 ml 05/22/20 21:41 Magnesium Citrate Solution 296 Ml Bottle PO 05/22/20 21:42 ONETIME ONE Ondansetron HCl 4 mg 05/22/20 19:06 05/22/20 19:28 Ondansetron 4 Mg/2 Ml Sdv IVPUSH 05/22/20 19:07 4 mg ONETIME ONE Administration - Re-Assessments/Exams Free Text/Narrative Re-Assessment/Exam: 05/22/20 21:21 Patient's case was assumed for care. She was able to provide a urine screen, and this is all negative for today's purposes. CT has been performed and camilo al radiology read is still pending. 05/22/20 21:[address] has been performed and demonstrates no focal acute abdominal pathology. I did review the CT myself, she does have quite a bit of stool t hroughout her entire colon consistent with constipation which could be causing some of her pain and nausea. We will go ahead and get her home with some mag citrate she is already had oral contrast, and this should also provide a laxative effect. Departure - Departure Time of Disposition: 21:41 Condition: Good - Discharge Information *PRESCRIPTION DRUG MONITORING PROGRAM REVIEWED*: No *COPY OF PRESCRIPTION DRUG MONITORING REPORT IN PATIENT [place]: No Sepsis Event Note (ED) - Focused Exam Vital Signs: Vital Signs Temp Pulse Resp BP Pulse Ox 05/22/20 18:50 97.2 F 73 20 151/87 H 95
[2020-05-22] MEDS ORDERED: Iopamidol 612 MG/ML 100 ML Bottle IVPUSH ONE (20:22)
[2020-05-22] MEDS ORDERED: Diatrizoate Meglumine/Diatrizoate Sodium 37% 120 ML Bottle PO ONE (20:22)
[2020-05-22] MEDS ORDERED: Sodium Chloride 0.9% 10 ML Syringe FLUSH SCH (20:30)
[2020-05-22] MEDS ORDERED: Magnesium Citrate Solution 296 ML Bottle PO ONE (21:41)
[2020-05-22] MEDS ORDERED: Dicyclomine 10 MG Cap PO ONE (21:45)
--- NOTE | 2020-05-23 08:34 | CT ---
CT abdomen and pelvis Technique: Multiple axial sections were obtained from above the dome of the diaphragm inferiorly through the pubic symphysis. Intravenous and oral contrast was utilized. Delayed images were obtained through the bladder. Reconstructed coronal and sagittal images were obtained. Comparison: No prior CT abdomen or pelvis is available. Findings: Mild interstitial change is noted within both lung bases most likely representing slight fibrosis. Within the chest there is a small low density abnormality within the right paraspinal region measuring 2.1 cm which most likely represents a small extrapleural cyst. Smaller abnormality is noted on the left side measuring 1.4 cm also felt to represent similar abnormality. These two findings are felt to be incidental. Liver shows mild fatty infiltration. Small low density finding is noted within the upper right lobe of the liver which is nonspecific but most likely represents a small cyst measuring 6 mm. No additional abnormality is appreciated within the liver. Spleen size is normal. Adrenal glands show no nodule. Pancreas is within normal limits. Gallbladder contains no calcified gallstones. Kidneys show symmetric contrast enhancement. No hydronephrosis or mass is seen. Abdominal aorta shows no aneurysm. No retroperitoneal adenopathy or mesenteric abnormalities are appreciated. Appendix is seen which is normal. No pelvic mass or adenopathy is seen. Minimal diverticuli are seen within the sigmoid colon. Slight increased stool noted throughout the colon. No free fluid or inflammatory change is appreciated. Delayed images show contrast within the distal ureters and the bladder. Bone window settings were reviewed which show disc space narrowing and vacuum phenomena within the L4-5 disc. Lesser degenerative change scattered within other portions of the spine is seen. No acute osseous abnormality is appreciated. Impression: 1. Findings as noted above believed to be incidental. 2. Nothing acute is appreciated. Diagnostic code #2 I agree with preliminary report from [facility], finalized on 05/22/20, 10:29 PM CDT
== END 2020-05-22 22:00 | disposition home or self-care (01) ==
LOC: JD.ED 18:30
DX: K59.09 Other constipation (principal); E66.9 Obesity, unspecified; Z68.39 Body mass index [BMI] 39.0-39.9, adult
CPT/HCPCS: 36415; 74177; 80053; 81001; 83690; 85025; 86140; 96374; 99284; A9270; J2405; Q9963; Q9967

== ENCOUNTER 2020-09-12 07:11 | Emergency (ER) | payer OTHER, SELFPAY ==
[2020-09-12 07:26] VITALS: BP 136/73; PULSE 80
--- NOTE | 2020-09-12 08:09 | EDM.PDOC ---
ED HPI GENERAL MEDICAL PROBLEM - General Chief Complaint: General Stated Complaint: BODY PAIN Time Seen by Provider: 09/12/20 08:03 Source of Information: Reports: Patient History Limitations: Reports: No Limitations - History of Present Illness INITIAL COMMENTS - FREE TEXT/NARRATIVE: 59-year-old female presents to the ED for evaluation of diffuse low back pain and left lower extremity pain. The history suggest that she has chronic low back pain for many years but it has been gradually worsening with radiation down her left leg. She has severe pain medial aspect of her left knee joint from degenerative arthritic right is changed. Left foot pain as well. Straight have pain in the right knee as well as her hip. Clinically she has generalized osteoarthritic changes related to age. 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 She is going to need to look for alternative forms of work. She is currently taking combination of Motrin and Tylenol in the mornings to try and help ease the pain and discomfort to get through the day. Pain is present upon getting up from sleep and takes an hour or so to start to improve a little bit. By then then end of the day she is in severe discomfort. Onset: Other (Chronic problems gradually worsening particularly worse over the last month) Duration: Chronic, Getting Worse Location: Reports: Back, Lower Extremity, Left (Increased low back pain left lower extremity pain.) Quality: Reports: Ache, Throbbing Severity: Moderate (7 out of 10) Improves with: Reports: Rest Worsens with: Reports: Other (Better when she gets off her feet) Context: Reports: Other (Gradually worsening generalized arthritis of the lumbar spine and knee joints.). Denies: Activity ( worse with prolonged standing in the workplace.), Exercise, Lifting, Sick Contact, Trauma Associated Symptoms: Reports: Malaise, Shortness of Breath. 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: Other (see below) (Tylenol arthritis medication in the morning) Generalized Pain Score (Numeric/FACES): 2 - Related Data Allergies Allergy/AdvReac Type Severity Reaction Status Date / Time No Known Allergies Allergy Verified 07/08/21 07:22 Home Meds: Home Meds Meloxicam 15 mg PO DAILY #30 tablet 09/12/20 [Rx] predniSONE [Prednisone] 20 mg PO BID #18 tablet 09/12/20 [Rx] Past Medical History - Past Health History Medical/Surgical History: Denies Medical/Surgical History HEENT History: Reports: Impaired Vision Gastrointestinal History: Reports: Hemorrhoids Other Gastrointestinal History: with 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: Musculoskeletal History: Reports: Arthritis Other Musculoskeletal History: Back injury 7 years ago Endocrine/Metabolic History: Reports: Obesity/BMI 30+ - Infectious Disease History Infectious Disease History: Reports: Chicken Pox, Measles, Mumps - Past Surgical History HEENT Surgical History: Reports: Oral Surgery Female Surgical History: Reports: Section, Tubal Ligation Other Female Surgeries/Procedures: x 3 Social & Family History - Family History Family Medical History: No Pertinent Family History - Tobacco Use Tobacco Use Status *Q: Never Tobacco User - Caffeine Use Caffeine Use: Reports: Coffee Other Caffeine Use: was not able to address prior to discharge - Recreational Drug Use Recreational Drug Use: No - Living Situation & Occupation Living situation: Reports: , Alone Occupation: Employed ([employer]) [employer] - Review of Systems Review Of Systems: See Below Constitutional: Reports: Malaise, Weakness, Fatigue, Decreased Appetite, Other (He is going to the gym and attempt to trying to lose some weight.). Denies: Fever, Chills, Weight Loss HEENT: Reports: Glasses Respiratory: Reports: Shortness of Breath (Mainly for reading). Denies: Wheezing, Pleuritic Chest Pain, Cough, Sputum, Hemoptysis, Other Cardiovascular: Reports: Dyspnea on Exertion ( improved in the morning), Edema (Feet are swollen at the end of the day). Denies: Chest Pain, Blood Pressure Problem, Claudication, Lightheadedness, Orthopnea, Palpitations Endocrine: Reports: Fatigue GI/Abdominal: Reports: Constipation (Occasional problems with constipation). Denies: Diarrhea, Nausea, Vomiting : Reports: Frequency, Incontinence (Occasional urge and stress incontinence.) Musculoskeletal: Reports: Neck Pain, Shoulder Pain, Back Pain, Foot Pain (Both knees worse on the left side left foot pain ankle pain), Joint Pain Skin: Reports: No Symptoms Neurological: Reports: No Symptoms, Difficulty Walking (Due to pain in her). Denies: Confusion, Dizziness, Headache, Numbness, Syncope, Tingling, Weakness Psychiatric: Reports: No Symptoms (Left lower extremity foot and knee.) Hematologic/Lymphatic: Reports: No Symptoms Immunologic: Reports: No Symptoms ED EXAM, GENERAL - Physical Exam Exam: See Below Exam Limited By: No Limitations General Appearance: Alert, WD/WN, Mild Distress, Other (Temperature is 35.9 degrees. Heart rate 80 and sinus. Respiratory is 14. BP 136/73 with O2 sats of 95% room air.) Eye Exam: Bilateral Eye: Normal Inspection, PERRL (No blepharal pallor or scleral icterus.) Respiratory/Chest: No Respiratory Distress, Lungs Clear (Decreased air entry to both lung lowe by about 20%.), Normal Breath Sounds, Decreased Breath Sounds. No: Respiratory Distress, Rales, Rhonchi, Wheezing Cardiovascular: Regular Rate, Rhythm, No Edema, No Gallop, No Murmur, No Rub Peripheral Pulses: 2+: Carotid (L), Carotid (R), Posterior Tibial (L), Posterior Tibial (R), Dorsalis Pedis (L), Dorsalis Pedis (R) GI/Abdominal: Normal Bowel Sounds, Soft, Non-Tender, No Organomegaly, No Mass, Pelvis Stable, Other (Markedly obese. Abdominal girth limits ability to palpate solid organs.) Back Exam: Decreased Range of Motion, Other (Patient has increased lordotic curvature lumbar spine. Point tenderness over the L4-L5 and L5-S1 facet joints bilaterally. Worse on the left. She has marked tenderness throughout both sacroiliac joints but much worse on the left side. No pain on greater tuberosities) Extremities: Normal Inspection, Pedal Edema (Edema at the ankles.), Other (Patient has significant degenerative arthritic change medial aspect of both knees worse on the left as compared to the right. She also has limited inte rnal/external rotation of both hips suggesting osteoarthritic change.) Neurological: Alert, Oriented, CN II-XII Intact, Normal Cognition, Other. No: Normal Gait Psychiatric: Normal Affect (Limping gait), Normal Mood Skin Exam: Warm, Dry, Intact, Normal Color, No Rash Course - Vital Signs Last Recorded V/S: Last Vital Signs Temp 35.9 C L 09/12/20 07:23 Pulse 80 09/12/20 07:23 Resp 14 09/12/20 07:23 BP 136/73 09/12/20 07:23 Pulse Ox 95 09/12/20 07:23 - Radiology Interpretation Free Text/Narrative:: 59-year-old female presents to the ED with increased pain in her lower back in particular her left lower extremity. Clinically she has significant bilateral sacroiliitis and degenerative arthritis and disc disease in her lower back. Clinically she is also got osteoarthritic changes particular involving the medial compartment of both knees worse on the left as compared to the right. She is obese with a BMI greater than 40.9. Her job entails working as a casino cashier in a concrete floor long hours of the day which is contributing to her increased pain left lower extremity and back. Exam reveals marked tenderness throughout both sacroiliac joints lower lumbar spine particular L4-L5 and L5-S1 facet joints bilaterally. I am going to place her on prednisone 20 mg twice daily for 6 days then once in the morning only for another 6 days to provide acute relief of inflammation. Particular the sacroiliac joints. Going to place her on meloxicam 15 mg daily for the next month as a trial to see if it reduces her pain and inflammation. Note given to excuse her from the workplace today and tomorrow to allow the anti-inflammatories to start to work and relieve some of her pain and discomfort. She will follow up with her normal care provider in a month's time if the meloxicam is working. Departure - Departure Time of Disposition: 08:04 Disposition: Home, Self-Care 01 Condition: Fair Clinical Impression: Bilateral sacroiliitis, Osteoarthritis of spine with radiculopathy, lumbar region Osteoarthritis of both knees Qualifiers: Osteoarthritis type: unspecified Qualified Code(s): M17.0 - Bilateral primary osteoarthritis of knee - Discharge Information *PRESCRIPTION DRUG MONITORING PROGRAM REVIEWED*: Not Applicable *COPY OF PRESCRIPTION DRUG MONITORING REPORT IN PATIENT [place]: Not Applicable Prescriptions: Meloxicam 15 mg PO DAILY #30 tablet predniSONE [Prednisone] 20 mg PO BID #18 tablet Instructions: Osteoarthritis Referrals: PCP,None [Primary Care Provider] - Forms: ED Department Discharge, ED Return to Work/School Form Additional Instructions: Evaluation in the emergency room this morning in regards to gradually worsening pain lower back and particularly radiating down the posterior aspect of the left leg. Associated inflammation and pain medial aspect of your left knee. The other knee is also involved but to a lesser extent. Increasing pain left foot due to degenerative arthritic change. 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 Examination reveals marked inflammation of facet joints in the lower back particularly at the lumbar five S1 facet joints on both sides. Marked inflammation of bilateral sacroiliac joints worse on the left as compared to the right. Evidence of osteoarthritic changes in both knees worse on the left than on the right. Suggest a trial of prednisone 20 mg with breakfast and then one with supper daily for 6 days and then once in the morning only for another 6 days to relieve pain and inflammation in the lower back and sacroiliac joints. Also more meloxicam 15 mg tablet once daily first thing in the morning with food. Should be reevaluated in 2 to 3 weeks times by your primary care physician. I agree that looking for alternative type of work is in order as condition is likely only going to gradually get worse and is aggravated by current job duties. Sepsis Event Note (ED) - Evaluation Sepsis Screening Result: No Definite Risk - Focused Exam Vital Signs: Vital Signs Temp Pulse Resp BP Pulse Ox 09/12/20 07:23 35.9 C L 80 14 136/73 95
== END 2020-09-12 08:20 | disposition home or self-care (01) ==
LOC: JD.ED 07:11
DX: M17.0 Bilateral primary osteoarthritis of knee (principal); M47.26 Other spondylosis with radiculopathy, lumbar region; M46.1 Sacroiliitis, not elsewhere classified; E66.9 Obesity, unspecified; Z68.41 Body mass index [BMI] 40.0-44.9, adult
CPT/HCPCS: 99283

== ENCOUNTER 2021-02-24 09:33 | Emergency (ER) | payer SELFPAY ==
[2021-02-24] MEDS ORDERED: Sodium Chloride 0.9% 1,000 ML IV STA (10:39)
[2021-02-24] MEDS ORDERED: Sodium Chloride 0.9% 10 ML Syringe FLUSH PRN (10:39)
[2021-02-24] MEDS ORDERED: Ondansetron 4 MG/2 ML SDV IVPUSH ONE (10:39)
[2021-02-24 10:50] VITALS: BP 133/74; PULSE 80
[2021-02-24 11:25] LABS: CORONAVIRUS COVID-19 NAA NEGATIVE (NEGATIVE)
--- NOTE | 2021-02-24 12:27 | EDM.PDOC ---
ED HPI GENERAL MEDICAL PROBLEM - General Chief Complaint: Abdominal Pain Stated Complaint: ABDOMINAL PAIN VOMITING DIARRHEA Time Seen by Provider: 02/24/21 10:13 Source of Information: Reports: Patient History Limitations: Reports: No Limitations - History of Present Illness INITIAL COMMENTS - FREE TEXT/NARRATIVE: The patient presents with upper abdominal macias, nausea, vomiting and diarrhea. This all started on Wednesday with pain to the upper abdomen. She has nausea and vomiting. She has decreased appetite. She has diarrhea. She has no fever, chills, cough, chest pain, shortness of breath or dysuria. She works here and may have been exposed to multiple sick people. She does wear a mask. She still has her gallbladder and her appendix. Onset: Gradual Duration: Day(s): (3) Location: Reports: Abdomen Quality: Reports: Sharp Severity: Moderate Improves with: Reports: None Worsens with: Reports: None Associated Symptoms: Reports: Nausea/Vomiting. Denies: Chest Pain, Cough, Fever/Chills, Headaches - Related Data Allergies Allergy/AdvReac Type Severity Reaction Status Date / Time No Known Allergies Allergy Verified 02/24/21 10:46 Home Meds: Home Meds Meloxicam 15 mg PO DAILY #30 tablet 09/12/20 [Rx] predniSONE [Prednisone] 20 mg PO BID #18 tablet 09/12/20 [Rx] Ondansetron [Zofran ODT] 4 mg PO Q6H PRN #20 tab.dis 02/24/21 [Rx] Past Medical History - Past Health History Medical/Surgical History: Denies Medical/Surgical History HEENT History: Reports: Impaired Vision Gastrointestinal History: Reports: Hemorrhoids Other Gastrointestinal History: with cholecystitis [employer] History: Reports: Musculoskeletal History: Reports: Arthritis Other Musculoskeletal History: Back injury 7 years ago Endocrine/Metabolic History: Reports: Obesity/BMI 30+ - Infectious Disease History Infectious Disease History: Reports: Chicken Pox, Measles, Mumps - Past Surgical History HEENT Surgical History: Reports: Oral Surgery Female Surgical History: Reports: Section, Tubal Ligation Other Female Surgeries/Procedures: x 3 Social & Family History - Family History Family Medical History: No Pertinent Family History - Tobacco Use Tobacco Use Status *Q: Never Tobacco User - Caffeine Use Caffeine Use: Reports: Coffee Other Caffeine Use: was not able to address prior to discharge - Recreational Drug Use Recreational Drug Use: No - Living Situation & Occupation Living situation: Reports: , Alone Occupation: Employed ([employer]) ED ROS GENERAL - Review of Systems Review Of Systems: See Below Constitutional: Reports: Malaise, Weakness, Fatigue. Denies: Fever, Chills HEENT: Reports: No Symptoms Respiratory: Reports: No Symptoms Cardiovascular: Reports: No Symptoms Endocrine: Reports: No Symptoms GI/Abdominal: Reports: Abdominal Pain, Diarrhea, Nausea, Vomiting : Reports: No Symptoms Musculoskeletal: Reports: No Symptoms Skin: Reports: No Symptoms Neurological: Reports: No Symptoms ED EXAM, GI/ABD - Physical Exam Exam: See Below Exam Limited By: No Limitations General Appearance: Alert, No Apparent Distress Ears: Normal External Exam Nose: Normal Inspection Head: Atraumatic, Normocephalic Neck: Normal Inspection Respiratory/Chest: No Respiratory Distress, Lungs Clear, Normal Breath Sounds Cardiovascular: Regular Rate, Rhythm, No Edema, No Murmur GI/Abdominal Exam: Soft, No Organomegaly, Tender (Moderate tenderness to the right upper abdomen) Course - Vital Signs Last Recorded V/S: Last Vital Signs Temp 97.0 F 02/24/21 10:46 Pulse 80 02/24/21 10:46 Resp 16 02/24/21 10:46 BP 133/74 02/24/21 10:46 Pulse Ox 95 02/24/21 10:46 - Orders/Labs/Meds Orders: Active Orders 24 hr Category Date Time Status Peripheral IV Care [RC] . DIRECTED Care 02/24/21 10:39 Active Sodium Chloride 0.9% [Saline Flush] Med 02/24/21 10:39 Active 10 ml FLUSH ASDIRECTED PRN ED Antiemetic Medication Reflex [OM.PC] Stat Oth 02/24/21 10:39 Ordered Peripheral IV Insertion Adult [OM.PC] Stat Oth 02/24/21 10:39 Ordered Medication Orders Sodium Chloride (Sodium Chloride 0.9% 10 Ml Syringe) 10 ml FLUSH ASDIRECTED PRN PRN Reason: Keep Vein Open Last Admin: 02/24/21 11:06 Dose: 10 ml Documented by: ABELARDO Labs: Laboratory Tests 02/24/21 02/24/21 02/24/21 Range/Units 10:35 10:35 10:35 WBC 4.24 (3.98-10.04) K/mm3 RBC 5.02 (3.98-5.22) M/mm3 Hgb 14.6 (11.2-15.7) gm/dl Hct 44.2 (34.1-44.9) % MCV 88.0 (79.4-94.8) fl MCH 29.1 (25.6-32.2) pg MCHC 33.0 (32.2-35.5) g/dl RDW Std Deviation 44.7 (36.4-46.3) fL Plt Count 234 (182-369) K/mm3 MPV 9.6 (9.4-12.3) fl Neut % (Auto) 70.4 (34.0-71.1) % Lymph % (Auto) 16.7 L (19.3-51.7) % Ector % (Auto) 9.4 (4.7-12.5) % Eos % (Auto) 3.1 (0.7-5.8) Baso % (Auto) 0.2 (0.1-1.2) % Neut # (Auto) 2.98 (1.56-6.13) K/mm3 Lymph # (Auto) 0.71 L (1.18-3.74) K/mm3 Ector # (Auto) 0.40 H (0.24-0.36) K/mm3 Eos # (Auto) 0.13 (0.04-0.36) K/mm3 Baso # (Auto) 0.01 (0.01-0.08) K/mm3 Sodium 141 (136-145) mEq/L Potassium 3.5 (3.5-5.1) mEq/L Chloride 106 (98-107) mEq/L Carbon Dioxide 24 (21-32) mEq/L Anion Gap 14.5 (5-15) BUN 13 (7-18) mg/dL Creatinine 0.7 (0.55-1.02) mg/dL Est Cr Clr Drug Dosing 75.94 mL/min Estimated GFR (MDRD) > 60 (>60) mL/min BUN/Creatinine Ratio 18.6 H (14-18) Glucose 134 H (70-99) mg/dL Calcium 7.6 L (8.5-10.1) mg/dL Total Bilirubin 1.0 (0.2-1.0) mg/dL AST 27 (15-37) U/L ALT 29 (14-59) U/L Alkaline Phosphatase 70 (46-116) U/L Total Protein 6.8 (6.4-8.2) g/dl Albumin 3.1 L (3.4-5.0) g/dl Globulin 3.7 gm/dL Albumin/Globulin Ratio 0.8 L (1-2) Lipase 53 L (73-393) U/L Urine Color (Yellow) Urine Appearance (Clear) Urine pH (5.0-8.0) Ur Specific Etta (1.005-1.030) Urine Protein (Negative) Urine Glucose (UA) (Negative) Urine Ketones (Negative) Urine Occult Blood (Negative) Urine Nitrite (Negative) Urine Bilirubin (Negative) Urine Urobilinogen (0.2-1.0) Ur Leukocyte Esterase (Negative) Urine RBC (0-5) /hpf Urine WBC (0-5) /hpf Ur Squamous Epith Cells (0-5) /hpf Urine Bacteria (FEW) /hpf Urine Mucus (FEW) /hpf Influenza Type A RNA Negative (NEGATIVE) Influenza Type B RNA Negative (NEGATIVE) SARS-CoV-2 RNA (ETHAN) Negative (NEGATIVE) 02/24/21 Range/Units 13:24 WBC (3.98-10.04) K/mm3 RBC (3.98-5.22) M/mm3 Hgb (11.2-15.7) gm/dl Hct (34.1-44.9) % MCV (79.4-94.8) fl MCH (25.6-32.2) pg MCHC (32.2-35.5) g/dl RDW Std Deviation (36.4-46.3) fL Plt Count (182-369) K/mm3 MPV (9.4-12.3) fl Neut % (Auto) (34.0-71.1) % Lymph % (Auto) (19.3-51.7) % Ector % (Auto) (4.7-12.5) % Eos % (Auto) (0.7-5.8) Baso % (Auto) (0.1-1.2) % Neut # (Auto) (1.56-6.13) K/mm3 Lymph # (Auto) (1.18-3.74) K/mm3 Ector # (Auto) (0.24-0.36) K/mm3 Eos # (Auto) (0.04-0.36) K/mm3 Baso # (Auto) (0.01-0.08) K/mm3 Sodium (136-145) mEq/L Potassium (3.5-5.1) mEq/L Chloride (98-107) mEq/L Carbon Dioxide (21-32) mEq/L Anion Gap (5-15) BUN (7-18) mg/dL Creatinine (0.55-1.02) mg/dL Est Cr Clr Drug Dosing mL/min Estimated GFR (MDRD) (>60) mL/min BUN/Creatinine Ratio (14-18) Glucose (70-99) mg/dL Calcium (8.5-10.1) mg/dL Total Bilirubin (0.2-1.0) mg/dL AST (15-37) U/L ALT (14-59) U/L Alkaline Phosphatase (46-116) U/L Total Protein (6.4-8.2) g/dl Albumin (3.4-5.0) g/dl Globulin gm/dL Albumin/Globulin Ratio (1-2) Lipase (73-393) U/L Urine Color Yellow (Yellow) Urine Appearance Clear (Clear) Urine pH 6.0 (5.0-8.0) Ur Specific Etta 1.015 (1.005-1.030) Urine Protein Negative (Negative) Urine Glucose (UA) Negative (Negative) Urine Ketones Negative (Negative) Urine Occult Blood Negative (Negative) Urine Nitrite Negative (Negative) Urine Bilirubin Negative (Negative) Urine Urobilinogen 2.0 H (0.2-1.0) Ur Leukocyte Esterase Negative (Negative) Urine RBC 0-5 (0-5) /hpf Urine WBC 0-5 (0-5) /hpf Ur Squamous Epith Cells 0-5 (0-5) /hpf Urine Bacteria Few (FEW) /hpf Urine Mucus Few (FEW) /hpf Influenza Type A RNA (NEGATIVE) Influenza Type B RNA (NEGATIVE) SARS-CoV-2 RNA (ETHAN) (NEGATIVE) Meds: Medications Generic Name Dose Route Start Last Admin Trade Name Freq PRN Reason Stop Dose Admin Sodium Chloride 10 ml 02/24/21 10:39 02/24/21 11:06 Sodium Chloride 0.9% 10 Ml Syringe FLUSH 10 ml ASDIRECTED PRN Administration Keep Vein Open Discontinued Medications Generic Name Dose Route Start Last Admin Trade Name Augusto PRN Reason Stop Dose Admin Sodium Chloride 1,000 mls @ 1,000 mls/hr 02/24/21 10:39 02/24/21 11:05 Normal Saline IV 02/24/21 11:38 1,000 mls/hr .BOLUS STA Administration Ondansetron HCl 4 mg 02/24/21 10:39 02/24/21 11:05 Ondansetron 4 Mg/2 Ml Sdv IVPUSH 02/24/21 10:40 4 mg ONETIME ONE Administration - Re-Assessments/Exams Free Text/Narrative Re-Assessment/Exam: 02/24/21 12:27 I ordered an IV NS 1L bolus, zofran 4mg IV, labs, and an US of her RUQ. Her CBC and CMP look good. 02/24/21 12:27 Her lipase is low at 53. Her COVID and influenza are negative. 02/24/21 14:14 Her UA shows no UTI. Her US shows echogenic liver likely representing fatty infiltration. Nonvisualized pancreas. Other portions of the right upper quadrant abdominal US are unremarkable. She feels better. I feel she has a viral gastroenteritis. I will get her on some zofran and discharge her home. Departure - Departure Time of Disposition: 14:20 Disposition: Home, Self-Care 01 Condition: Good Clinical Impression: Viral gastroenteritis - Discharge Information *PRESCRIPTION DRUG MONITORING PROGRAM REVIEWED*: Not Applicable *COPY OF PRESCRIPTION DRUG MONITORING REPORT IN PATIENT [place]: Not Applicable Prescriptions: Ondansetron [Zofran ODT] 4 mg PO Q6H PRN #20 tab.dis PRN Reason: Nausea\vomiting Referrals: PCP,None [Primary Care Provider] - Forms: ED Department Discharge, ED Return to Work/School Form Additional Instructions: Drink plenty of fluids. Take tylenol or motrin for any fever or pain. Take the zofran every 6 hours as needed for nausea or vomiting. Please return if you are worse. Sepsis Event Note (ED) - Evaluation Sepsis Screening Result: No Definite Risk - Focused Exam Vital Signs: Vital Signs Temp Pulse Resp BP Pulse Ox 02/24/21 10:46 97.0 F 80 16 133/74 95 - My Orders Last 24 Hours: My Active Orders 02/24/21 10:39 Peripheral IV Care [RC] . DIRECTED Sodium Chloride 0.9% [Saline Flush] 10 ml FLUSH ASDIRECTED PRN ED Antiemetic Medication Reflex [OM.PC] Stat Peripheral IV Insertion Adult [OM.PC] Stat - Assessment/Plan Last 24 Hours: My Active Orders 02/24/21 10:39 Peripheral IV Care [RC] . DIRECTED Sodium Chloride 0.9% [Saline Flush] 10 ml FLUSH ASDIRECTED PRN ED Antiemetic Medication Reflex [OM.PC] Stat Peripheral IV Insertion Adult [OM.PC] Stat
--- NOTE | 2021-02-24 12:38 | US ---
Limited abdominal ultrasound: Multiple real-time images of the upper right abdomen were obtained. Comparison: Prior CT abdomen and pelvis study of 05/22/20. Findings: Liver is somewhat echogenic most likely representing fatty infiltration. Right kidney shows no hydronephrosis or mass. Right kidney has a length of 11.5 cm. Pancreas is mostly obscured by bowel gas. Visualized proximal aorta shows no aneurysm. Inferior vena cava is patent. Main portal vein shows normal hepatopedal flow. Gallbladder shows no discrete shadowing gallstones. No gallbladder wall thickening or biliary duct dilatation is seen. Impression: 1. Echogenic liver likely representing fatty infiltration. 2. Nonvisualized pancreas. 3. Other portions of the right upper quadrant abdominal ultrasound are unremarkable. Diagnostic code #2
== END 2021-02-24 15:00 | disposition home or self-care (01) ==
LOC: JD.ED 09:33
DX: A08.4 Viral intestinal infection, unspecified (principal); R11.2 Nausea with vomiting, unspecified; E66.9 Obesity, unspecified; Z68.41 Body mass index [BMI] 40.0-44.9, adult; Z20.822 Contact with and (suspected) exposure to COVID-19
CPT/HCPCS: 0240U; 36415; 76705; 80053; 81001; 83690; 85025; 96374; 99284; J2405; J7030

== ENCOUNTER 2021-09-16 01:38 | Emergency (ER) | payer SELFPAY ==
[2021-09-16 01:50] VITALS: BP 140/77; PULSE 81
== END 2021-09-16 02:56 | disposition home or self-care (01) ==
LOC: JD.ED 01:38
DX: M25.562 Pain in left knee (principal); E66.9 Obesity, unspecified; Z68.33 Body mass index [BMI] 33.0-33.9, adult
CPT/HCPCS: 73564-26-LT; 73564-LT; 99283

== ENCOUNTER 2022-06-21 21:01 | Emergency (ER) | payer SELFPAY ==
[2022-06-21 21:15] VITALS: BP 129/58; PULSE 86
[2022-06-21] MEDS ORDERED: Albuterol 6.7 GM Inhaler INH ONE (22:05)
[2022-06-21 23:12] LABS: CORONAVIRUS COVID-19 NAA POSITIVE (NEGATIVE)
== END 2022-06-21 23:50 | disposition home or self-care (01) ==
LOC: JD.ED 21:01
DX: U07.1 COVID-19 (principal); E66.9 Obesity, unspecified; Z68.39 Body mass index [BMI] 39.0-39.9, adult
CPT/HCPCS: 0240U; 36415; 71046; 80053; 84484; 85025; 85379; 93005; 94640; 99285; A9270; 93010; 99284

== ENCOUNTER 2022-07-21 19:17 | Emergency (ER) | payer SELFPAY ==
[2022-07-21 19:39] VITALS: BP 159/55; PULSE 103
[2022-07-21 20:42] LABS: HEMOGLOBIN 14.7 gm/dl (11.2-15.7); MEAN CORPUSCULAR HEMOGLOBIN 29.6 pg (25.6-32.2); MEAN CORPUSCULAR HGB CONC 33.4 g/dl (32.2-35.5); MEAN CORPUSCULAR VOLUME 88.7 fl (79.4-94.8); MEAN PLATELET VOLUME 10.4 fl (9.4-12.3); PLATELET COUNT,PLT 243 K/mm3 (182-369); RED BLOOD CELL COUNT 4.96 M/mm3 (3.98-5.22); WHITE BLOOD CELL COUNT,WBC 6.82 K/mm3 (3.98-10.04)
[2022-07-21 20:55] LABS: INFLUENZA A NAA NEGATIVE (NEGATIVE); RESPIRATORY SYNCYTIAL VIR NAA NEGATIVE (NEGATIVE)
[2022-07-21 21:00] LABS: INR 0.98; PROTHROMBIN TIME 10.5 SECONDS (9.7-12.0)
[2022-07-21 21:02] LABS: PTT,PARTIAL THROMBOPLSTIN TIME 30.8 SECONDS (21.7-31.4)
[2022-07-21 21:04] LABS: D-DIMER QUANTITATIVE 0.51 mg/L (0.19-0.50)
[2022-07-21 21:08] LABS: LACTIC ACID 1.5 mmol/L (0.4-2.0)
[2022-07-21 21:15] LABS: A/G RATIO 0.7 (1-2); ANION GAP 10.1 (5-15); BILIRUBIN TOTAL 0.7 mg/dL (0.2-1.0); BUN/CREATININE RATIO 14.4 (14-18); C-REACTIVE PROTEIN 1.9 mg/dL (<1.0); CALCIUM 8.5 mg/dL (8.5-10.1); CREATININE 0.9 mg/dL (0.55-1.02); EST CRCL DRUG DOSING (CG) 60.67 mL/min; PROTEIN TOTAL,TP 7.3 g/dl (6.4-8.2)
[2022-07-21 21:16] LABS: POTASSIUM,K 4.1 mEq/L (3.5-5.1)
[2022-07-21 21:21] LABS: BAND PERCENT MAN 0 % (0-10); BASOPHILS PERCENT MAN 0 (0.1-1.2); EOSINOPHILS PERCENT MAN 0 % (0.7-5.8); LYMPHOCYTES % ATYPICAL MANUAL 0 %; LYMPHOCYTES PERCENT MAN 16 % (20-40); MONOCYTES PERCENT MAN 0 % (2-10); PLATELET COUNT ESTIMATE ADEQUATE
[2022-07-21 21:21] LABS: CORONAVIRUS COVID-19 NAA POSITIVE (NEGATIVE)
== END 2022-07-21 22:23 | disposition home or self-care (01) ==
LOC: JD.ED 19:17
DX: U07.1 COVID-19 (principal); R73.9 Hyperglycemia, unspecified; M19.90 Unspecified osteoarthritis, unspecified site; E66.9 Obesity, unspecified; Z68.37 Body mass index [BMI] 37.0-37.9, adult; Z86.16 Personal history of COVID-19
CPT/HCPCS: 0241U; 36415; 71046; 80053; 83605; 83880; 84484; 85007; 85027; 85379; 85610; 85730; 86140; 87040; 87651; 99285; 99284

== ENCOUNTER 2022-08-05 12:16 | Emergency (ER) | payer OTHER ==
[2022-08-05 13:55] LABS: BASE EXCESS ARTERIAL 1.9 (-2-2.0); O2 SATURATION ARTERIAL 88.9 % (96.0-97.0); PCO2 ARTERIAL 41.1 mmHg (35.0-45.0)
[2022-08-05 14:17] LABS: INFLUENZA A NAA NEGATIVE (NEGATIVE); RESPIRATORY SYNCYTIAL VIR NAA NEGATIVE (NEGATIVE)
[2022-08-05 14:21] LABS: CORONAVIRUS COVID-19 NAA POSITIVE (NEGATIVE)
[2022-08-05 14:42] LABS: BASOPHILS ABSOLUTE AUTO 0.04 K/mm3 (0.01-0.08); BASOPHILS PERCENT AUTO 0.6 % (0.1-1.2); EOSINOPHILS ABSOLUTE AUTO 0.18 K/mm3 (0.04-0.36); EOSINOPHILS PERCENT AUTO 2.5 (0.7-5.8); HEMATOCRIT 43.2 % (34.1-44.9); HEMOGLOBIN 14.4 gm/dl (11.2-15.7); IMMATURE GRAN ABSOLUTE AUTO 0.02 K/mm3 (0.00-0.10); IMMATURE GRAN PERCENT AUTO 0.3 % (<=1.0); LYMPHOCYTES ABSOLUTE AUTO 1.77 K/mm3 (1.18-3.74); MEAN CORPUSCULAR HEMOGLOBIN 29.6 pg (25.6-32.2); MEAN CORPUSCULAR HGB CONC 33.3 g/dl (32.2-35.5); MEAN CORPUSCULAR VOLUME 88.7 fl (79.4-94.8); MEAN PLATELET VOLUME 10.1 fl (9.4-12.3); MONOCYTES ABSOLUTE AUTO 0.55 K/mm3 (0.24-0.36); MONOCYTES PERCENT AUTO 7.8 % (4.7-12.5); NEUTROPHILS ABSOLUTE AUTO 4.52 K/mm3 (1.56-6.13); NEUTROPHILS PERCENT AUTO 63.8 % (34.0-71.1); PLATELET COUNT,PLT 269 K/mm3 (182-369); RED BLOOD CELL COUNT 4.87 M/mm3 (3.98-5.22); WHITE BLOOD CELL COUNT,WBC 7.08 K/mm3 (3.98-10.04)
[2022-08-05 14:49] LABS: INR 0.96; PROTHROMBIN TIME 10.3 SECONDS (9.7-12.0)
[2022-08-05 14:52] LABS: A/G RATIO 0.8 (1-2); ALBUMIN 3.4 g/dl (3.4-5.0); ANION GAP 12.7 (5-15); BILIRUBIN TOTAL 0.6 mg/dL (0.2-1.0); CALCIUM 9.1 mg/dL (8.5-10.1); EST CRCL DRUG DOSING (CG) 52.49 mL/min; MAGNESIUM 2.1 mg/dL (1.8-2.4); POTASSIUM,K 3.7 mEq/L (3.5-5.1); PROTEIN TOTAL,TP 7.8 g/dl (6.4-8.2); TSH 1.688 uIU/mL (0.358-3.74)
[2022-08-05] MEDS ORDERED: methylPREDNISolone Sodium Succinate 125 MG/2 ML SDV IVPUSH ONE (14:52)
[2022-08-05 14:54] LABS: PTT,PARTIAL THROMBOPLSTIN TIME 32.3 SECONDS (21.7-31.4)
[2022-08-05 15:10] LABS: D-DIMER QUANTITATIVE 0.29 mg/L (0.19-0.50)
[2022-08-05 16:25] LABS: APPEARANCE,URINE CLEAR (Clear); BILIRUBIN,URINE NEGATIVE (Negative); COLOR,URINE YELLOW (Yellow); GLUCOSE,URINE TRACE (Negative); KETONES,URINE NEGATIVE (Negative); LEUKOCYTE ESTERASE,URINE NEGATIVE (Negative); NITRITE,URINE NEGATIVE (Negative); OCCULT BLOOD,URINE NEGATIVE (Negative); PROTEIN,URINE NEGATIVE (Negative); UROBILINOGEN,URINE 0.2 (0.2-1.0)
[2022-08-06 00:42] VITALS: BP 109/54; PULSE 79
== END 2022-08-06 02:30 | disposition left against medical advice (07) ==
LOC: JD.ED 12:16
DX: U07.1 COVID-19 (principal); R09.02 Hypoxemia; E66.9 Obesity, unspecified; Z68.38 Body mass index [BMI] 38.0-38.9, adult; Z86.16 Personal history of COVID-19; Z98.890 Other specified postprocedural states
CPT/HCPCS: 0241U; 36415; 36600; 71045; 80053; 81003; 82550; 82803; 83735; 83880; 84443; 84484; 85025; 85379; 85610; 85730; 87040; 93005; 96374; 99285; J2930; 93010

== ENCOUNTER 2024-01-03 22:54 | Emergency (ER) | payer SELFPAY ==
[2024-01-04 02:36] VITALS: BP 138/74; PULSE 64
== END 2024-01-04 02:23 | disposition home or self-care (01) ==
LOC: JD.ED 22:54
DX: M25.572 Pain in left ankle and joints of left foot (principal); M25.562 Pain in left knee; E11.9 Type 2 diabetes mellitus without complications; E66.9 Obesity, unspecified; Z68.37 Body mass index [BMI] 37.0-37.9, adult; Z86.16 Personal history of COVID-19
CPT/HCPCS: 73590-26-LT; 73590-LT; 99283